=== PATIENT | female | born 1970 | race Caucasian/White ===

== ENCOUNTER → 2016-12-21 | Outpatient (CLI) | payer OTHER ==
[~2016-12-21] MED LIST: ASPI81TA28 PO; ATV/1 PO; EFF/375 PO; ENOX60IN SC; FLX10 PO; IMD/2 PO; MAGN400T6 PO; NSS; OMEP40CA PO; OMEP40CA41 PO; ONDA4TAB46 PO; POTA1POW; TRAM-10 PO; VENL-271 PO; ZVR/400 PO; [UNRECOGNIZED DRUG - CODE] PO; decadron; magnesium IV
--- NOTE | 2016-12-21 09:37 | DIAGNOSTIC IMAGING REPORT ---
GASTROGRAFIN COLONIC ENEMA CLINICAL HISTORY: ADENOCARCINOMA OF FALLOPIAN TUBEhistory of colonic resections with anastomosis. Evaluate for anastomotic leak. COMPARISON STUDY: None FLUOROSCOPY TIME: 1.1 minutes. 18 fluoroscopic spot images were acquired.. FINDINGS: Gastrografin was introduced per rectum and reached the cecum. There was reflux into terminal ileum. No annular mass lesions are visualized. There are no obstructive changes. There is no evidence for anastomotic leak. A sigmoid diverticulum is visualized. IMPRESSION: No evidence of stricture. No evidence of anastomotic leak. Electronically signed by: Tawanda Sanchez M.D. 12/21/2016 9:36 AM Dictated Date/Time: 12/21/2016 9:33 AM
== END | disposition home or self-care (01) ==
LOC: C.RAD 08:30
PROVIDERS: ATTEND Internal Medicine
DX: C57.00 Malignant neoplasm of unspecified fallopian tube (principal)

== ENCOUNTER 2017-04-08 10:25 | Inpatient (IN) | payer OTHER ==
[~2017-04-08] VITALS: Ht 175.3 cm; Wt 67.0 kg
[~2017-04-08 10:25] MED LIST changes: -ENOX60IN SC; -OMEP40CA41 PO; -VENL-271 PO; -[UNRECOGNIZED DRUG - CODE] PO
[2017-04-08] MEDS ORDERED: [UNRECOGNIZED DRUG - CODE] PO (11:12)
[2017-04-08] MEDS ORDERED: OMEP40CA41 PO (11:12)
[2017-04-08 11:28] LABS: BASO % 0.1 %; BASO ABS # 0.01 K/uL (0-0.2); COMPLETE YES; HEMATOCRIT 38.6 % (37-47); IG% 0.2 %; LYMPH % 29.5 %; LYMPH ABS # 3.16 K/uL (1.2-3.4); MEAN CELL VOLUME 94.4 fL (80-100); MEAN CORPUSCULAR HEMOGLOBIN 31.8 pg (25-34); MEAN CORPUSCULAR HGB CONC 33.7 g/dl (32-36); MEAN PLATELET VOLUME 8.9 fL (7.4-10.4); MONO % 9.8 %; NEUT % 59.4 %; PLATELET COUNT 382 K/uL (130-400); RED BLOOD COUNT 4.09 M/uL (4.2-5.4); WHITE BLOOD COUNT 10.72 K/uL (4.8-10.8)
[2017-04-08 11:35] LABS: BUN/CREATININE RATIO 16.3 (10-20); CALCIUM 10.1 mg/dl (8.5-10.1); CREATININE 0.93 mg/dl (0.60-1.20); POTASSIUM 3.6 mmol/L (3.5-5.1)
[2017-04-08 11:37] LABS: INR 0.9 (0.9-1.1); PROTHROMBIN TIME (PATIENT) 9.9 SECONDS (9.0-12.0)
--- NOTE | 2017-04-08 12:56 | DIAGNOSTIC IMAGING REPORT ---
RIGHT VENOUS DOPPLER UPR EXT UNI HISTORY: Pain. Edema. Right neck swelling, power port in place, ? DVT Right COMPARISON STUDY: None. FINDINGS: Evidence for extensive thrombus major within the right jugular and subclavian vein. Compressibility is incomplete. IMPRESSION: Extensive thrombus within the right jugular and subclavian veins. The above report was generated using voice recognition software. It may contain grammatical, syntax or spelling errors. Electronically signed by: Roosevelt Sin M.D. 04/08/2017 12:55 PM Dictated Date/Time: 04/08/2017 12:53 PM
[2017-04-08] MEDS ORDERED: ONDANSETRON 8 MG/54 ML D5W IV STA (13:13)
[2017-04-08] MEDS ORDERED: HYDROmorphone INJ 1 MG/ML SYR IV PRN ×2 (13:15→19:45)
[2017-04-08] MEDS ORDERED: HEPARIN 25000 UNIT/500 ML D5W ONE (13:26)
[2017-04-08] MEDS ORDERED: HEPARIN SOD 5000 UNIT/0.5 ML CARP ONE (13:26)
[2017-04-08] MEDS ORDERED: DOCUSATE SODIUM 100 MG CAP PO PRN (13:30)
[2017-04-08] MEDS ORDERED: SENNA 8.6 MG TAB PO PRN (13:30)
[2017-04-08] MEDS ORDERED: ONDANSETRON 4 MG TAB PO PRN (13:30)
[2017-04-08] MEDS ORDERED: ALUMINUM/MAGNESIUM/SIMETH (MAALOX MAX) 30 ML UDC PO PRN (13:45)
[2017-04-08] MEDS ORDERED: MAGNESIUM HYDROXIDE SUSP 30 ML UDC PO PRN (13:45)
[2017-04-08] MEDS ORDERED: MoRPHine SULFATE 2 MG/ML CARP IV PRN (13:45)
[2017-04-08] MEDS ORDERED: ACETAMINOPHEN 325 MG TAB PO PRN (13:45)
[2017-04-08 13:52] VITALS: O2SAT 98; Ht 175.3 cm; Wt 67.0 kg
[2017-04-08 14:19] VITALS: O2SAT 97
[2017-04-08 14:40] VITALS: BP 113/75; PULSE 87; TEMP 37.2
--- NOTE | 2017-04-08 15:03 | EMERGENCY ROOM VISIT NOTE ---
History Report prepared by Droa: Tiera Jones Under the Supervision of: Dr. Lamberto Cortes M.D. First contact with patient: 10:41 Chief Complaint: NECK PAIN Stated Complaint: NECK PAIN,SWOLLEN History of Present Illness The patient is a 46 year old female who presents to the Emergency Room with complaints of constant right-sided neck pain that started 4 days ago. The patient states that she woke up with the pain 4 days ago and thought that she just had a stiff neck. However, she noticed the right side of her neck was starting to get edematous yesterday so she felt that she should get it evaluated. She is also experiencing pain with swallowing and right shoulder stiffness. The patient is also experiencing generalized body aches, but she adds that she has been doing yard work recently. The patient states that she feels well otherwise. Pt denies LOC, headache, fevers, chills, diaphoresis, visual changes, neck erythema, chest pain, breathing difficulties, nausea, vomiting, abdominal pain, back pain, melena, hematochezia, urinary symptoms, lower extremity edema, numbness, weakness, lymphadenopathy, rash, or other complaints. The patient has been diagnosed with stage 4B. The patient states that she has not been on chemotherapy since November because her CA125 has been dropping without it. The patient adds that she had a positive mediastinum biopsy. The patient states that she was evaluated by her surgeon at [facility] 6 days ago and everything was good. Source of History: patient Onset: 4 days ago Position: neck (right side) Quality: other (right-sided neck pain) Timing: constant Note: right-sided neck edema, pain with swallowing, right shoulder stiffness, generalized body aches Review of Systems See HPI for pertinent positives and negatives. A total of ten systems were reviewed and were otherwise negative. Past Medical & Surgical Medical Problems: (1) DVT of upper extremity (deep vein thrombosis) (2) Ovarian cancer Surgical Problems: (1) H/O: hysterectomy (2) History of bowel resection (3) S/P appendectomy (4) S/P cholecystectomy (5) S/P splenectomy Family History No pertinent family history Social History Smoking Status: Former Smoker Alcohol Use: none Drug Use: none Marital Status: Housing Status: lives with family Occupation Status: employed Current/Historical Medications Scheduled Acyclovir (Acyclovir), 400 MG PO DAILY Aspirin (Aspirin Ec), 81 MG PO DAILY Lorazepam (Ativan), 1 MG PO HS Magnesium Oxide (Mag-Ox), 400 MG PO BID Omeprazole (Prilosec), 40 MG PO DAILY Potassium Chloride Pwd (Klor-Con Pwd), BID Rucaparib Camsylate (Rubraca), 600 MG PO BID Venlafaxine Hcl (Effexor), 37.5 MG PO DAILY Scheduled PRN Cyclobenzaprine HCl (Cyclobenzaprine HCl), 10 MG PO for Muscle Spasms Loperamide Hcl (Imodium), 4 MG PO QID PRN for Diarrhea Ondansetron Hcl (Zofran), 4 MG PO Q8 PRN for Nausea Tramadol (Ultram), 50 MG PO Q4H PRN for Pain Allergies Coded Allergies: No Known Allergies (Verified , 04/08/17) Physical Exam Vital Signs Date Time Temp Pulse Resp B/P (MAP) Pulse Ox O2 Delivery O2 Flow Rate FiO2 04/08/17 14:19 36.9 108 25 138/87 97 04/08/17 14:00 108 25 97 04/08/17 13:52 98 Room Air 04/08/17 13:31 138/87 04/08/17 13:30 105 04/08/17 13:11 130/87 04/08/17 12:01 123/80 04/08/17 12:00 86 23 98 04/08/17 11:56 92 04/08/17 11:35 98 Room Air 04/08/17 11:34 85 24 112/80 99 Room Air 04/08/17 11:33 112/80 04/08/17 10:27 36.9 106 20 115/76 97 Physical Exam GENERAL: Awake, alert, well-appearing, in no distress HENT: Normocephalic, atraumatic. Oropharynx unremarkable. EYES: Normal conjunctiva. Sclera non-icteric. NECK: Supple. Tender to palpation of the right neck. Minimal swelling. No erythema or warmth. Normal C SCM. No nuchal rigidity. FROM. No JVD. RESPIRATORY: Clear to auscultation. CARDIAC: Regular rate, normal rhythm. Extremities warm and well perfused. Pulses equal. ABDOMEN: Soft, non-distended. No tenderness to palpation. No rebound or guarding. No masses. RECTAL: Deferred. MUSCULOSKELETAL: Chest examination reveals no tenderness. Mediport in right chest. The back is symmetrical on inspection without obvious abnormality. There is no CVA tenderness to palpation. No joint edema. LOWER EXTREMITIES: Calves are equal size bilaterally and non-tender. No edema. No discoloration. NEURO: Normal sensorium. No sensory or motor deficits noted. SKIN: No rash or jaundice noted. Medical Decision & Procedures ER Provider Diagnostic Interpretation: US results as stated below per my review and radiologist interpretation: RIGHT VENOUS DOPPLER UPR EXT UNI FINDINGS: Evidence for extensive thrombus major within the right jugular and subclavian vein. Compressibility is incomplete. IMPRESSION: Extensive thrombus within the right jugular and subclavian veins. The above report was generated using voice recognition software. It may contain grammatical, syntax or spelling errors. Electronically signed by: Roosevelt Sin M.D. 04/08/2017 12:55 PM Dictated Date/Time: 04/08/2017 12:53 PM Laboratory Results 04/08/17 11:00 Red Blood Count 4.09, Mean Corpuscular Volume 94.4, Mean Corpuscular Hemoglobin 31.8, Mean Corpuscular Hemoglobin Concent 33.7, Mean Platelet Volume 8.9, Neutrophils (%) (Auto) 59.4, Lymphocytes (%) (Auto) 29.5, Monocytes (%) (Auto) 9.8, Eosinophils (%) (Auto) 1.0, Basophils (%) (Auto) 0.1, Neutrophils # (Auto) 6.37, Lymphocytes # (Auto) 3.16, Monocytes # (Auto) 1.05, Eosinophils # (Auto) 0.11, Basophils # (Auto) 0.01 04/08/17 11:00 Test 04/08/17 11:00 White Blood Count 10.72 K/uL (4.8-10.8) Red Blood Count 4.09 M/uL (4.2-5.4) Hemoglobin 13.0 g/dL (12.0-16.0) Hematocrit 38.6 % (37-47) Mean Corpuscular Volume 94.4 fL (80-100) Mean Corpuscular Hemoglobin 31.8 pg (25-34) Mean Corpuscular Hemoglobin Concent 33.7 g/dl (32-36) Platelet Count 382 K/uL (130-400) Mean Platelet Volume 8.9 fL (7.4-10.4) Neutrophils (%) (Auto) 59.4 % Lymphocytes (%) (Auto) 29.5 % Monocytes (%) (Auto) 9.8 % Eosinophils (%) (Auto) 1.0 % Basophils (%) (Auto) 0.1 % Neutrophils # (Auto) 6.37 K/uL (1.4-6.5) Lymphocytes # (Auto) 3.16 K/uL (1.2-3.4) Monocytes # (Auto) 1.05 K/uL (0.11-0.59) Eosinophils # (Auto) 0.11 K/uL (0-0.5) Basophils # (Auto) 0.01 K/uL (0-0.2) RDW Standard Deviation 55.1 fL (36.4-46.3) RDW Coefficient of Variation 15.9 % (11.5-14.5) Immature Granulocyte % (Auto) 0.2 % Immature Granulocyte # (Auto) 0.02 K/uL (0.00-0.02) Nucleated RBC Absolute Count (auto) 0.05 K/uL (0-0) Nucleated Red Blood Cells % 0.5 % Prothrombin Time 9.9 SECONDS (9.0-12.0) Prothromb Time International Ratio 0.9 (0.9-1.1) Activated Partial Thromboplast Time 24.9 SECONDS (21.0-31.0) Partial Thromboplastin Ratio 1.0 Anion Gap 7.0 mmol/L (3-11) Est Creatinine Clear Calc Drug Dose 78.4 ml/min Estimated GFR () 86.0 Estimated GFR (Non- 74.2 BUN/Creatinine Ratio 16.3 (10-20) Calcium Level 10.1 mg/dl (8.5-10.1) Total Bilirubin 0.4 mg/dl (0.2-1) Aspartate Amino Transf (AST/SGOT) 22 U/L (15-37) Alanine Aminotransferase (ALT/SGPT) 32 U/L (12-78) Alkaline Phosphatase 139 U/L (45-117) Total Protein 7.5 gm/dl (6.4-8.2) Albumin 3.8 gm/dl (3.4-5.0) Globulin 3.7 gm/dl (2.5-4.0) Albumin/Globulin Ratio 1.0 (0.9-2) Laboratory results reviewed by me Medications Administered Medications (Trade) Dose Ordered Sig/Constantin Route Start Time Stop Time Status Last Admin Dose Admin Hydromorphone HCl (Dilaudid Inj) 1 mg Q15M PRN IV 04/08/17 13:15 04/22/17 13:14 04/08/17 13:46 1 MG Ondansetron HCl (Zofran 8mg Iv) 8 mg NOW STAT IV 04/08/17 13:13 04/08/17 13:14 DC 04/08/17 13:13 8 MG Heparin Sodium (Porcine) (Heparin Sq 5000 Unit/0.5ml) 5,000 unit STK-MED ONCE .ROUTE 04/08/17 13:26 04/08/17 13:27 DC 04/08/17 13:26 4,000 UNIT Heparin Sodium/ Dextrose (Heparin 25,000 Unit/500ml D5W) 25,000 unit STK-MED ONCE .ROUTE 04/08/17 13:26 04/08/17 13:27 DC 04/08/17 13:26 25,000 UNIT ED Course 1108: The patient was evaluated in room C6. A complete history and physical exam was performed. 1310: Upon reexamination, the patient was resting comfortably. I discussed the test results and treatment plan with her. The patient will be evaluated for further management. 1311: Ordered Heparin Sodium/Dextrose 1 ea IV 1313: Ordered Zofran 8 mg IV 1315: Ordered Dilaudid Inj 1 mg IV 1316: [facility] the [facility] The patient will be evaluated for further treatment and disposition. 1317: Discussed the patient's case with Dr. Delgadillo - Vascular Surgery. He recommends anticoagulation and he said that the thrombus does not have to be removed today. Medical Decision Medication Reconciliation: I attest that I have personally reviewed the patient' s current medication list Blood pressure screening: Patient was found to have normal blood pressure on screening and does not require follow-up. Triage Nursing notes reviewed. The patient's presentation and history were concerning for neck swelling and pain. Etiologies such as DVT, infection,muscular, lymphadenopathy,as well as others were entertained. The patient was evaluated. She had a port in place. There is no signs of infection on the skin. Her history and the presence of the port were very concerning for possible DVT. The patient had blood work obtained which was unremarkable. Her ultrasound revealed an extensive jugular and subclavian DVT. The patient was informed. She will need anticoagulation. The patient was started on IV heparin. She will need admission to the hospital. I did discuss the case with the [facility]ist. I also discussed case with Dr. Delgadillo. He recommended anticoagulation. Catheter removal was not emergently necessary. The patient will be admitted and surgery will consult. Consults Time Called: 1309 Consulting Physician[facility] Returned Call: 1316 Discussed the patient's [facility] The patient will be evaluated for further treatment and disposition. Additional Consults: Time Called: 1316 Consulted Physician: Dr. Delgadillo - Vascular Surgery Returned Call: 1316 Additional Comments: Discussed the patient's case with Dr. Delgadillo - Vascular Surgery. He recommends anticoagulation and he said that the thrombus does not have to be removed today. Impression Primary Impression: Jugular vein thrombosis, right Additional Impression: Subclavian vein thrombosis, right Scribe Attestation The scribe's documentation has been prepared under my direction and personally reviewed by me in its entirety. I confirm that the note above accurately reflects all work, treatment, procedures, and medical decision making performed by me. Departure Information Dispostion Being Evaluated By Hospitalist Referrals Rossy Hilario M.D. (PCP) Patient Instructions My [facility] Problem Qualifiers
--- NOTE | 2017-04-08 15:08 | History and Physical ---
History & Physical Date & Time of Service: Apr 08, 2017 at 14:51 Chief Complaint: Dvt Of Ue,Metastatic Adenocarcinoma Of Ovary Primary Care Physician: Rossy Hilario M.D. 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 She has a port on the R side. Recently was seen by surgeon in [place] regarding the port and everything looked fine at that time. She noticed pain and swelling the past few days with worsening pain with bowel movements and with swallowing. Presented to the ER and had an ultrasound; showing two thrombus, in the R jugular and subclavian veins. She is resting comfortably currently; pain around 5/10. Follows with [facility] oncology as well as Dr. 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 At one point had an ileostomy, which was reversed in November. Past Medical/Surgical History Medical Problems: (1) Ovarian cancer Status: Chronic Surgical Problems: (1) H/O: hysterectomy Status: Resolved (2) History of bowel resection Status: Resolved (3) S/P appendectomy Status: Resolved (4) S/P cholecystectomy Status: Resolved (5) S/P splenectomy Status: Resolved Family History No pertinent family history Social History Smoking Status: Former Smoker Drug Use: none Marital Status: Occupational Status: employed Multi-Drug Resistant Organisms History of MDRO: No Allergies Coded Allergies: No Known Allergies (Verified , 04/08/17) Home Medications Scheduled Acyclovir (Acyclovir), 400 MG PO DAILY Aspirin (Aspirin Ec), 81 MG PO DAILY Lorazepam (Ativan), 1 MG PO HS Magnesium Oxide (Mag-Ox), 400 MG PO BID Omeprazole (Prilosec), 40 MG PO DAILY Potassium Chloride Pwd (Klor-Con Pwd), BID Rucaparib Camsylate (Rubraca), 600 MG PO BID Venlafaxine Hcl (Effexor), 37.5 MG PO DAILY Scheduled PRN Cyclobenzaprine HCl (Cyclobenzaprine HCl), 10 MG PO for Muscle Spasms Loperamide Hcl (Imodium), 4 MG PO QID PRN for Diarrhea Ondansetron Hcl (Zofran), 4 MG PO Q8 PRN for Nausea Tramadol (Ultram), 50 MG PO Q4H PRN for Pain Review of Systems Constitutional: No fever, No chills, No sweats, No weight loss, No weakness, No fatigue Eyes: No worsening of vision ENT: + problem reported (anterior R sided neck pain), No hearing loss Respiratory: No cough, No sputum, No wheezing, No shortness of breath, No dyspnea on exertion, No dyspnea at rest, No hemoptysis Cardiovascular: + chest pain (anterior chest/neck), No edema, No palpitations Abdomen: No pain, No nausea, No vomiting, No diarrhea, No constipation, No GI bleeding Musculoskeletal: No joint pain, No muscle pain Genitourinary - Female: No dysuria, No urinary frequency, No urinary urgency, No urinary incontinence, No urinary retention, No hematuria Neurologic: No weakness, No numbness/tingling, No vertigo, No balance problems Psychiatric: No depression symptoms, No anxiety, No insomnia Endocrine: No fatigue Hematologic / Lymphatic: No abnormal bleeding/bruising Integumentary: No rash Allergic / Immunologic: No environmental allergies, No seasonal allergies Physical Exam Vital Signs Date Time Temp Pulse Resp B/P (MAP) Pulse Ox O2 Delivery O2 Flow Rate FiO2 04/08/17 14:19 36.9 108 25 138/87 97 04/08/17 14:00 108 25 97 04/08/17 13:52 98 Room Air 04/08/17 13:31 138/87 04/08/17 13:30 105 04/08/17 13:11 130/87 04/08/17 12:01 123/80 04/08/17 12:00 86 23 98 04/08/17 11:56 92 04/08/17 11:35 98 Room Air 04/08/17 11:34 85 24 112/80 99 Room Air 04/08/17 11:33 112/80 04/08/17 10:27 36.9 106 20 115/76 97 General Appearance: no apparent distress Head: normocephalic, atraumatic Eyes: normal inspection ENT: hearing grossly normal Neck: + pertinent finding (fullness, painful anterior neck swelling) Respiratory/Chest: chest non-tender, lungs clear, normal breath sounds, no respiratory distress, no accessory muscle use Cardiovascular: regular rate, rhythm, no edema, no murmur Abdomen/GI: normal bowel sounds, non tender, soft Back: no CVA tenderness, no muscle spasm Extremities/Musculoskelatal: normal capillary refill, no pedal edema Neurologic/Psych: no motor/sensory deficits, alert, normal mood/affect Skin: normal color Lymphatic: no adenopathy Diagnostics Laboratory Results Results Past 24 Hours Test 04/08/17 11:00 Range/Units White Blood Count 10.72 4.8-10.8 K/uL Red Blood Count 4.09 4.2-5.4 M/uL Hemoglobin 13.0 12.0-16.0 g/dL Hematocrit 38.6 37-47 % Mean Corpuscular Volume 94.4 80-100 fL Mean Corpuscular Hemoglobin 31.8 25-34 pg Mean Corpuscular Hemoglobin Concent 33.7 32-36 g/dl Platelet Count 382 130-400 K/uL Mean Platelet Volume 8.9 7.4-10.4 fL Neutrophils (%) (Auto) 59.4 % Lymphocytes (%) (Auto) 29.5 % Monocytes (%) (Auto) 9.8 % Eosinophils (%) (Auto) 1.0 % Basophils (%) (Auto) 0.1 % Neutrophils # (Auto) 6.37 1.4-6.5 K/uL Lymphocytes # (Auto) 3.16 1.2-3.4 K/uL Monocytes # (Auto) 1.05 0.11-0.59 K/uL Eosinophils # (Auto) 0.11 0-0.5 K/uL Basophils # (Auto) 0.01 0-0.2 K/uL RDW Standard Deviation 55.1 36.4-46.3 fL RDW Coefficient of Variation 15.9 11.5-14.5 % Immature Granulocyte % (Auto) 0.2 % Immature Granulocyte # (Auto) 0.02 0.00-0.02 K/uL Nucleated RBC Absolute Count (auto) 0.05 0-0 K/uL Nucleated Red Blood Cells % 0.5 % Prothrombin Time 9.9 9.0-12.0 SECONDS Prothromb Time International Ratio 0.9 0.9-1.1 Activated Partial Thromboplast Time 24.9 21.0-31.0 SECONDS Partial Thromboplastin Ratio 1.0 Sodium Level 143 136-145 mmol/L Potassium Level 3.6 3.5-5.1 mmol/L Chloride Level 103 98-107 mmol/L Carbon Dioxide Level 33 21-32 mmol/L Anion Gap 7.0 3-11 mmol/L Blood Urea Nitrogen 15 7-18 mg/dl Creatinine 0.93 0.60-1.20 mg/dl Est Creatinine Clear Calc Drug Dose 78.4 ml/min Estimated GFR () 86.0 Estimated GFR (Non- 74.2 BUN/Creatinine Ratio 16.3 10-20 Random Glucose 79 70-99 mg/dl Calcium Level 10.1 8.5-10.1 mg/dl Total Bilirubin 0.4 0.2-1 mg/dl Aspartate Amino Transf (AST/SGOT) 22 15-37 U/L Alanine Aminotransferase (ALT/SGPT) 32 12-78 U/L Alkaline Phosphatase 139 45-117 U/L Total Protein 7.5 6.4-8.2 gm/dl Albumin 3.8 3.4-5.0 gm/dl Globulin 3.7 2.5-4.0 gm/dl Albumin/Globulin Ratio 1.0 0.9-2 Diagnostic Radiology RIGHT VENOUS DOPPLER UPR EXT UNI HISTORY: Pain. Edema. Right neck swelling, power port in place, ? DVT Right COMPARISON STUDY: None. FINDINGS: Evidence for extensive thrombus major within the right jugular and subclavian vein. Compressibility is incomplete. IMPRESSION: Extensive thrombus within the right jugular and subclavian veins. 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 Delgadillo will start IV heparin for now vascular surgery consulted for further input monitor in tele, monitor for bleeding as patient is on Rubraca therapy Metastatic Ovarian CA patient currently on Rubraca therapy follows with [facility] oncology DVT ppx IV heparin for DVT as above FULL CODE Advanced Directives Existing Living Will: No Existing Power of Casino Dealer: No VTE Prophylaxis VTE Risk Assessment Done? Y/N: Yes Risk Level: High Given or contraindicated: Other Anticoagulation
[2017-04-08] MEDS ORDERED: HEPARIN 25000 UNIT/ D5W 500 ML (PHARMACY PREPARED) IV PRN ×2 (15:30)
[2017-04-08] MEDS ORDERED: VENL-271 PO (15:30)
[2017-04-08] MEDS: TRAMADOL HCL 50 MG TAB PO PRN (16:55)
[2017-04-08 19:31] VITALS: BP 108/71; PULSE 83; TEMP 36.6; O2SAT 97
[2017-04-08] MEDS: KETOROLAC TROMETHAMINE 30 MG/ML VIAL IV PRN (19:56)
[2017-04-08] MEDS ORDERED: RUCAPARIB CAMSYLATE PO SCH (21:00)
[2017-04-08] MEDS ORDERED: RUBRACA PO SCH (21:00)
[2017-04-08] MEDS: MAGNESIUM OXIDE 400 MG TAB PO SCH (21:31)
[2017-04-08] MEDS: LORAZEPAM 1 MG TAB PO SCH (21:31)
[2017-04-08] MEDS: POTASSIUM CHLORIDE PWD 20 MEQ PACK PO SCH (21:32)
[2017-04-08 23:53] VITALS: BP 109/70; PULSE 74; TEMP 36.7; O2SAT 97
[2017-04-09 03:33] VITALS: BP 108/69; PULSE 87; TEMP 36.7; O2SAT 98
[2017-04-09] MEDS: KETOROLAC TROMETHAMINE 30 MG/ML VIAL IV PRN ×4 (03:33→22:43)
[2017-04-09 07:13] LABS: HEMATOCRIT 36.2 % (37-47); MEAN CELL VOLUME 94.5 fL (80-100); MEAN CORPUSCULAR HEMOGLOBIN 32.1 pg (25-34); PLATELET COUNT 325 K/uL (130-400); RED BLOOD COUNT 3.83 M/uL (4.2-5.4); WHITE BLOOD COUNT 9.23 K/uL (4.8-10.8)
[2017-04-09 07:34] LABS: PARTIAL THROMBOPLASTIN RATIO 1.9
[2017-04-09 07:44] LABS: BUN/CREATININE RATIO 17.9 (10-20); CALCIUM 9.5 mg/dl (8.5-10.1); CREATININE 0.92 mg/dl (0.60-1.20); POTASSIUM 4.1 mmol/L (3.5-5.1)
[2017-04-09] MEDS: VENLAFAXINE HCL XR 37.5 MG CAPXR PO SCH (07:58)
[2017-04-09] MEDS: ACYCLOVIR 400 MG TAB PO SCH (07:58)
[2017-04-09] MEDS: MAGNESIUM OXIDE 400 MG TAB PO SCH ×2 (07:58→21:09)
[2017-04-09] MEDS: PANTOprazole SOD 40 MG TAB PO SCH (07:58)
[2017-04-09] MEDS: ASPIRIN 81 MG ECTAB PO SCH (07:58)
[2017-04-09] MEDS: POTASSIUM CHLORIDE PWD 20 MEQ PACK PO SCH ×2 (07:58→21:09)
[2017-04-09] MEDS: RUBRACA PO SCH ×2 (07:59→21:12)
[2017-04-09 08:00] VITALS: BP 110/73; PULSE 85; O2SAT 98
[2017-04-09 11:04] VITALS: BP 115/75; PULSE 87; TEMP 36.7; O2SAT 97
--- NOTE | 2017-04-09 13:11 | Medical Consult ---
Consultation Date of Consultation: Apr 09, 2017. Attending Physician: Doreen Oliva M.D. Reason for Consultation: Extensive thrombus within the right jugular and subclavian veins in the setting of active treatment for Stage IV ovarian cancer History of Present Illness Mrs. Forrest is well known to the consult medical oncology service. She is a 46 -year-old female, a case of ovarian/fallopian tube carcinoma S/P optimal debulking surgery at [facility], she then completed 6 cycles of adjuvant paclitxel/carboplatin from 06/2016-10/2016. In December 2016, she followed up at [facility], and was started on Rucaparib (Rubraca). She had reversal of the ileostomy in December 2016. She followed up with [facility] last 04/02/2017, at which time a CA 125 was drawn and reportedly is 3, WNL. Prior to current admission, she had right sided neck/anterior chest pain for 4 days. She has a port on the right side. In The ER, she had RUE showing two thrombus, in the right jugular and subclavian veins. She was initially given morphine, but she states this made her feel drowsy and sick, so now she is taking Toradol with adequate relief of her pain. Vascular surgery has been consulted, note pending. She denies chest pain, cough or dyspnea. She has not had fever. She gets hot flashes s/p TH/BSO and is currently tapering of Effexor as this was not helpful in controlling these symptoms. She states her appetite is decreased on her PARP inhibitor, but she eats regularly. She denies nausea; she states she takes laxatives or Imodium PRN since she has s/p partial resection and GB removal at time of her debulking surgery. She denies bleeding from any sites. Past Medical/Surgical History Medical Problems: (1) Jugular vein thrombosis, right Status: Acute (2) Subclavian vein thrombosis, right Status: Acute Family History No pertinent family history Social History Smoking Status: Former Smoker Drug Use: none Marital Status: Housing Status: lives with family Occupation Status: employed Allergies Coded Allergies: No Known Allergies (Verified , 04/08/17) Current Inpatient Medications Current Inpatient Medications Medications (Trade) Dose Ordered Sig/Constantin Route Start Time Stop Time Status Last Admin Dose Admin Acyclovir (Zovirax Tab) 400 mg DAILY PO 04/09/17 09:00 05/09/17 08:59 04/09/17 07:58 400 MG Aspirin (Ecotrin Tab) 81 mg DAILY PO 04/09/17 09:00 05/09/17 08:59 04/09/17 07:58 81 MG Lorazepam (Ativan Tab) 1 mg HS PO 04/08/17 21:00 05/08/17 20:59 04/08/17 21:31 1 MG Magnesium Oxide (Mag-Ox Tab) 400 mg BID PO 04/08/17 21:00 05/08/17 20:59 04/09/17 07:58 400 MG Ondansetron HCl (Zofran Tab) 4 mg Q8 PRN PO 04/08/17 13:30 05/08/17 13:29 Potassium Chloride (Klor-Con Pwd) 20 meq BID PO 04/08/17 21:00 05/08/17 20:59 04/09/17 07:58 20 MEQ Tramadol HCl (Ultram Tab) 50 mg Q4H PRN PO 04/08/17 13:30 05/08/17 13:29 04/08/17 16:55 50 MG Venlafaxine HCl (effeXOR EXTENDED REL CAP) 37.5 mg DAILY PO 04/09/17 09:00 05/09/17 08:59 04/09/17 07:58 37.5 MG Pantoprazole Sodium (Protonix Tab) 40 mg DAILY PO 04/09/17 09:00 05/09/17 08:59 04/09/17 07:58 40 MG Docusate Sodium (coLACE CAP) 100 mg BID PRN PO 04/08/17 13:30 05/08/17 13:29 04/09/17 08:37 100 MG Senna (Senokot Tab) 8.6 mg QAM PRN PO 04/08/17 13:30 05/08/17 13:29 Acetaminophen (Tylenol Tab) 650 mg Q4H PRN PO 04/08/17 13:45 05/08/17 13:44 Al Hydrox/Mg Hydrox/Simethicone (Maalox Max Susp) 15 ml Q4H PRN PO 04/08/17 13:45 05/08/17 13:44 Magnesium Hydroxide (Milk Of Magnesia Susp) 30 ml Q12H PRN PO 04/08/17 13:45 05/08/17 13:44 Heparin Sodium (Porcine) 35733 unit/Dextrose 500 ml @ 16 mls/hr Q24H PRN IV 04/08/17 15:30 05/08/17 15:29 Ketorolac Tromethamine (Toradol Inj) 30 mg Q6H PRN IV 04/08/17 19:45 04/13/17 19:44 04/09/17 09:53 30 MG Hydromorphone HCl (Dilaudid Inj) 1 mg Q4 PRN IV 04/08/17 19:45 04/22/17 19:44 Non-Formulary Medication (Non-Formulary Patient'S Own Med) 2 ea BID PO 04/09/17 09:00 05/08/17 20:59 04/09/17 07:59 2 EA Review of Systems Constitutional: + sweats, No fever, No chills Respiratory: No cough, No sputum, No wheezing, No shortness of breath, No hemoptysis Cardiovascular: + edema (RUE- see HPI), No chest pain Abdomen: No pain, No nausea, No vomiting, No GI bleeding Musculoskeletal: No calf pain Genitourinary - Female: No hematuria Integumentary: No rash, No itch Physical Exam Date Time Temp Pulse Resp B/P (MAP) Pulse Ox O2 Delivery O2 Flow Rate FiO2 04/09/17 12:00 Room Air 04/09/17 11:04 36.7 87 20 115/75 (88) 97 Room Air 04/09/17 08:00 Room Air 04/09/17 08:00 85 18 110/73 (85) 98 Room Air 04/09/17 04:00 Room Air 04/09/17 03:33 36.7 87 16 108/69 (82) 98 Room Air 04/09/17 00:00 Room Air 04/08/17 23:53 36.7 74 16 109/70 (83) 97 Room Air 04/08/17 20:00 Room Air 04/08/17 19:31 36.6 83 16 108/71 (83) 97 Room Air 04/08/17 15:20 Room Air 04/08/17 14:40 37.2 87 16 113/75 (88) Room Air 04/08/17 14:19 36.9 108 25 138/87 97 7/16/17 14:00 108 25 97 04/08/17 13:52 98 Room Air 04/08/17 13:31 138/87 04/08/17 13:30 105 04/08/17 13:11 130/87 General Appearance: WD/WN, no apparent distress ENT: hearing grossly normal Respiratory/Chest: lungs clear, no respiratory distress, no accessory muscle use Cardiovascular: regular rate, rhythm Abdomen/GI: normal bowel sounds, non tender Extremities/Musculoskelatal: no calf tenderness, no pedal edema, + swelling ( of right supraclavicular fossa and anterior/lateral right neck) Neurologic/Psych: alert, oriented x 3 Skin: warm/dry, no rash Laboratory Results 04/08/17 11:00 Red Blood Count 4.09, Mean Corpuscular Volume 94.4, Mean Corpuscular Hemoglobin 31.8, Mean Corpuscular Hemoglobin Concent 33.7, Mean Platelet Volume 8.9, Neutrophils (%) (Auto) 59.4, Lymphocytes (%) (Auto) 29.5, Monocytes (%) (Auto) 9.8, Eosinophils (%) (Auto) 1.0, Basophils (%) (Auto) 0.1, Neutrophils # (Auto) 6.37, Lymphocytes # (Auto) 3.16, Monocytes # (Auto) 1.05, Eosinophils # (Auto) 0.11, Basophils # (Auto) 0.01 04/09/17 06:52 04/08/17 11:00 04/09/17 06:52 Test 04/08/17 11:00 04/08/17 20:00 04/09/17 06:52 White Blood Count 10.72 K/uL (4.8-10.8) Red Blood Count 4.09 M/uL (4.2-5.4) 3.83 M/uL (4.2-5.4) Hemoglobin 13.0 g/dL (12.0-16.0) Hematocrit 38.6 % (37-47) Mean Corpuscular Volume 94.4 fL (80-100) 94.5 fL (80-100) Mean Corpuscular Hemoglobin 31.8 pg (25-34) 32.1 pg (25-34) Mean Corpuscular Hemoglobin Concent 33.7 g/dl (32-36) 34.0 g/dl (32-36) Platelet Count 382 K/uL (130-400) Mean Platelet Volume 8.9 fL (7.4-10.4) 9.0 fL (7.4-10.4) Neutrophils (%) (Auto) 59.4 % Lymphocytes (%) (Auto) 29.5 % Monocytes (%) (Auto) 9.8 % Eosinophils (%) (Auto) 1.0 % Basophils (%) (Auto) 0.1 % Neutrophils # (Auto) 6.37 K/uL (1.4-6.5) Lymphocytes # (Auto) 3.16 K/uL (1.2-3.4) Monocytes # (Auto) 1.05 K/uL (0.11-0.59) Eosinophils # (Auto) 0.11 K/uL (0-0.5) Basophils # (Auto) 0.01 K/uL (0-0.2) RDW Standard Deviation 55.1 fL (36.4-46.3) 55.1 fL (36.4-46.3) RDW Coefficient of Variation 15.9 % (11.5-14.5) 15.9 % (11.5-14.5) Immature Granulocyte % (Auto) 0.2 % Immature Granulocyte # (Auto) 0.02 K/uL (0.00-0.02) Nucleated RBC Absolute Count (auto) 0.05 K/uL (0-0) 0.05 K/uL (0-0) Nucleated Red Blood Cells % 0.5 % 0.5 % Prothrombin Time 9.9 SECONDS (9.0-12.0) Prothromb Time International Ratio 0.9 (0.9-1.1) Activated Partial Thromboplast Time 24.9 SECONDS (21.0-31.0) 51.3 SECONDS (21.0-31.0) 49.5 SECONDS (21.0-31.0) Partial Thromboplastin Ratio 1.0 2.0 1.9 Anion Gap 7.0 mmol/L (3-11) 4.0 mmol/L (3-11) Est Creatinine Clear Calc Drug Dose 78.4 ml/min 80.6 ml/min Estimated GFR () 86.0 87.2 Estimated GFR (Non- 74.2 75.2 BUN/Creatinine Ratio 16.3 (10-20) 17.9 (10-20) Calcium Level 10.1 mg/dl (8.5-10.1) 9.5 mg/dl (8.5-10.1) Total Bilirubin 0.4 mg/dl (0.2-1) Aspartate Amino Transf (AST/SGOT) 22 U/L (15-37) Alanine Aminotransferase (ALT/SGPT) 32 U/L (12-78) Alkaline Phosphatase 139 U/L (45-117) Total Protein 7.5 gm/dl (6.4-8.2) Albumin 3.8 gm/dl (3.4-5.0) Globulin 3.7 gm/dl (2.5-4.0) Albumin/Globulin Ratio 1.0 (0.9-2) Right upper extremity venous Doppler from 04/08/2017: Evidence for extensive thrombus major within the right jugular and subclavian vein. Compressibility is incomplete. Assessment & Plan 1. Right jugular and subclavian vein thrombus, extensive, in the setting of a central VAD on the affected side * Patient started on heparin gtt on admission * Vascular consult is pending (conversation between primary team and vascular surgery yesterday, VS recommended to start anticoagulation and that clot removal , port removal was not necessary to occur on day of admission) * Depending on recommendations from VS, recommend to maintain patient on heparin gtt if a procedure is planned and to be stopped perioperatively per VS preference, then transition patient to therapeutic lovenox * Dr. Hilario plans to administer 3 months of anticoagulation with this patient * Check CBC daily while patient is hospitalized on anticoagulation and Rubraca can also cause bone marrow suppression 2. Stage IV ovarian cancer- s/p extensive debulking surgery, adjuvant chemotherapy with paclitaxel and carboplatin from 07/09-11/10, now currently on PARP inhibitor (Rubraca) * Having active DVT is not contraindication to continued administration of patient's Rubraca * Rubraca is not known to increase risk of VTE, based upon information available , but this is still a relatively newer drug * Most recent CA 125 was drawn on 04/02/17 at and per patient was 3, WNL Thanks for the consult. Dr. Hilario is attending medical oncologist on the case. The patient will continue to be monitored while hospitalized. I performed history and physical examination of the patient. I have discussed the patient's case, impression and plan with Amber Valdez PA-C. Her note reflects my findings and plan. In summary she is a known case of stage IV ovarian cancer, S/P extensive debulking surgery followed by chemotherapy treatment (paclitaxel and carboplatin ) between June,-October,, now she is on Rebruca (PARP inhibitor) as a maintenance treatment for BRCA mutation positive ovarian cancer, she has tolerated it quite well without significant side effects, now she is admitted for right jugular and subclavian vein thrombosis, she has port at the same site , started her on IV heparin, currently we are not using her port, agree about removing the port at this time. Once the port is out, I am planning for Lovenox at therapeutic dose as an outpatient treatment for about 3 months duration. She will follow up with the anticoagulation clinic. Will continue with Rebruca as we planned earlier. Dr. Chad Hilario Hem/Onc )
--- NOTE | 2017-04-09 14:06 | Progress Note ---
Internal Med Progress Note Date of Service: Apr 09, 2017. Provider Documentation: SUBJECTIVE: denies of any chest pain or SOB pain and swelling on rt side of neck persist no fever or chills scheduled for A port removal tomorrow by Dr Delgadillo OBJECTIVE: Vital Signs-as noted below Exam: General-no sign of distress Eyes-sclera non icteric Neck-swelling on rt neck area, no erythema noted, non tender Lungs-CTA , no wheeze or rales Heart-regular S1/S2 Abdomen-soft, non tender Extremities-no edema on lower ext Neuro-no focal deficit , AAO x3 Lab data as noted below. ASSESSMENT & PLAN: This is a 46 year old female with a PMH of metastatic ovarian and fallopian tube carcinoma s/p debulking and completed chemo presents with R jugular and subclavian vein DVT R jugular, subclavian DVT multiple DVTs noted at RUE U/S has A port on rt sided ; Hypercoagulable status due to underlying metastatic ovarian CA pt started on IV heparin for now vascular surgery consulted appreciate input form Dr Joyner scheduled for A port removal tomorrow monitor in tele,-high risk for embolic phenomenon -PE/acute CVA monitor for bleeding as patient is on Rubraca therapy pt will be transitioned to Therapeutic Lovenox tomorrow after procedure Metastatic Ovarian CA stage 4 ovarian and fallopian Ca with wide spread mets -peritoneum , mediastinum underwent extensive debulking surgery - s/p adjuvant chemotherapy with paclitaxel and carboplatin from 07/09-11/10, now currently on PARP inhibitor (Rubraca) follows with [facility] oncology Dr Molly Thompson and Dr Chad Hilario in [place] given hx of extensive activity director malignancy -pt is very hypercoagulable therapeutic Lovenox will be appropriate in this setting appreciate input form Heme onc recommend at least 3 months of Lovenox Sub q will continued to be followed at Heme onc office for further management out pt Anticoagulation clinic for continued monitoring of factor Xa level DVT ppx IV heparin for DVT as above needs to be transitioned to therapeutic Lovenox on discharge DISPOSITION Discharge home after Port removal will need to be on therapeutic Lovenox Vital Signs: Date Time Temp Pulse Resp B/P (MAP) Pulse Ox O2 Delivery O2 Flow Rate FiO2 04/09/17 12:00 Room Air 04/09/17 11:04 36.7 87 20 115/75 (88) 97 Room Air 04/09/17 08:00 Room Air 04/09/17 08:00 85 18 110/73 (85) 98 Room Air 04/09/17 04:00 Room Air 04/09/17 03:33 36.7 87 16 108/69 (82) 98 Room Air 04/09/17 00:00 Room Air 04/08/17 23:53 36.7 74 16 109/70 (83) 97 Room Air 04/08/17 20:00 Room Air 04/08/17 19:31 36.6 83 16 108/71 (83) 97 Room Air 04/08/17 15:20 Room Air Lab Results: Results Past 24 Hours Test 04/08/17 20:00 04/09/17 06:52 Range/Units Activated Partial Thromboplast Time 51.3 49.5 21.0-31.0 SECONDS Partial Thromboplastin Ratio 2.0 1.9 White Blood Count 9.23 4.8-10.8 K/uL Red Blood Count 3.83 4.2-5.4 M/uL Hemoglobin 12.3 12.0-16.0 g/dL Hematocrit 36.2 37-47 % Mean Corpuscular Volume 94.5 80-100 fL Mean Corpuscular Hemoglobin 32.1 25-34 pg Mean Corpuscular Hemoglobin Concent 34.0 32-36 g/dl RDW Standard Deviation 55.1 36.4-46.3 fL RDW Coefficient of Variation 15.9 11.5-14.5 % Platelet Count 325 130-400 K/uL Mean Platelet Volume 9.0 7.4-10.4 fL Nucleated RBC Absolute Count (auto) 0.05 0-0 K/uL Nucleated Red Blood Cells % 0.5 % Sodium Level 138 136-145 mmol/L Potassium Level 4.1 3.5-5.1 mmol/L Chloride Level 103 98-107 mmol/L Carbon Dioxide Level 31 21-32 mmol/L Anion Gap 4.0 3-11 mmol/L Blood Urea Nitrogen 17 7-18 mg/dl Creatinine 0.92 0.60-1.20 mg/dl Est Creatinine Clear Calc Drug Dose 80.6 ml/min Estimated GFR () 87.2 Estimated GFR (Non- 75.2 BUN/Creatinine Ratio 17.9 10-20 Random Glucose 89 70-99 mg/dl Calcium Level 9.5 8.5-10.1 mg/dl
--- NOTE | 2017-04-09 14:24 | Surgery Consultation ---
Consultation Date of Service Apr 09, 2017. (Amber Sultana, ASH) Chief Complaint R IJ/subclavian v DVT (Amber Sultana, ASH) History of Present Illness The patient is a 46 year old female with ovarian ca and infusaport present, seen in consultation today for R IJ and subclavian v DVT. Pt states she noticed pain with swallowing on R side neck, also R neck swelling about 3 days prior to arrival. States her sx have improved since admission and starting heparin. Not on chronic anticaogulation. No prior hx of DVT. States unsure whether she will need her infusaport, but not using it presently. Denies MITCHELL, fever, chills, chest pain, SOB, abd pain, N/V, rest pain, claudication, other complaints. (Amber Sultana, ASH) Vitals Vital Signs Past 12 Hours Date Time Temp Pulse Resp B/P (MAP) Pulse Ox O2 Delivery O2 Flow Rate FiO2 04/09/17 12:00 Room Air 04/09/17 11:04 36.7 87 20 115/75 (88) 97 Room Air 04/09/17 08:00 Room Air 04/09/17 08:00 85 18 110/73 (85) 98 Room Air 04/09/17 04:00 Room Air 04/09/17 03:33 36.7 87 16 108/69 (82) 98 Room Air (Amber Sultana, ASH) Allergies Coded Allergies: No Known Allergies (Verified , 04/08/17) Home Medications Scheduled Acyclovir (Acyclovir), 400 MG PO DAILY Aspirin (Aspirin Ec), 81 MG PO DAILY Lorazepam (Ativan), 1 MG PO HS Magnesium Oxide (Mag-Ox), 400 MG PO BID Omeprazole (Prilosec), 40 MG PO DAILY Potassium Chloride Pwd (Klor-Con Pwd), BID Rucaparib Camsylate (Rubraca), 600 MG PO BID Venlafaxine Hcl (Venlafaxine Hcl Er), 37.5 MG PO DAILY Scheduled PRN Cyclobenzaprine HCl (Cyclobenzaprine HCl), 10 MG PO for Muscle Spasms Loperamide Hcl (Imodium), 4 MG PO QID PRN for Diarrhea Ondansetron Hcl (Zofran), 4 MG PO Q8 PRN for Nausea Tramadol (Ultram), 50 MG PO Q4H PRN for Pain Problem List Medical Problems: (1) DVT of upper extremity (deep vein thrombosis) (2) Ovarian cancer Surgical Problems: (1) H/O: hysterectomy (2) History of bowel resection (3) S/P appendectomy (4) S/P cholecystectomy (5) S/P splenectomy (Amber Sultana PA-C) Surgical / Medical History Hx Cardiac Surgery: No Hx Abdominal Surgery: Yes (PELVIC EXTENERTION, APPENDECTOMY) Hx Cancer Surgery: Yes (STAGE 4 OVARIAN, S/P PELVIX EXTENERATION) Hx Thoracic Surgery: No Hx Orthopedic: No Hx Urinary Tract Surgery: No HX Other Surgery: Yes Past Medical/Surgical History: Cancer (Amber Sultana PA-C) Family History No pertinent family history (Amber Sultana PA-C) No pertinent family history (Ruiz Delgadillo M.D.) Social History Smoking Status: Former Smoker Hx Tobacco Use In Past Year?: Yes Hx Alcohol Use - Type & Amnt: Yes (Drinks alcohol occasionally. 0-7 beers weekly.) Hx Substance Use -Type & Amnt: No (Amber Sultana, ASH) Review of Systems Constitutional: No chills, No fever, No malaise Skin: No change in color Eyes: No visual changes ENMT: + problem reported (R side neck pain/stiffness) Respiratory: No cough, No STEPHENS, No hemoptysis, No short of breath Cardiovascular: No chest pain, No palpitations, No syncope, No edema, No intermittent claudication Gastrointestinal: No abdominal pain, No nausea, No vomiting Genitourinary - Female: No dysuria, No hematuria Neurologic: No dizziness, No headache, No lethargy, No numbness, No tingling ( Amber Sultana, ASH) Physical Exam Constitutional: General Apperance: heathly-appearing, well-nourished, well-developed Level of Distress: NAD Ambulation: ambulating normally Psychiatric: Mental Status: active & alert, normal mood, normal affect Orientation: oriented except where noted, to time, to place, to person Memory: recent memory normal, remote memory normal Head: normocephalic, atraumatic Eyes: EOM: EOMI ENMT: normal ENT inspection, hearing grossly normal Neck: supple, trachea midline, tender (R side only, minimal edema noted) Lungs: Respiratory effort: no dyspnea Auscultation: breath sounds normal, no wheezing, no rales/crackles, no rhonchi Cardiovascular: Apical Impulse: not displaced Heart Auscultation: RRR, no murmurs, no rubs, no gallops Peripheral Pulses: Pulses: full and equal, in all extremities except if noted Bruits: none appreciated Carotid Pulse: normal on the left, normal on the right Brachial Pulses: normal on the left, normal on the right Radial Pulse: normal on the left, normal on the right Femoral Pulse: normal on the left, normal on the right Posterior Tibialis Pulse: normal on the left, normal on the right Dorsalis Pedis Pulse: normal on the left, normal on the right Abdomen: Bowel Sounds: normal Inspection & Palpation: soft, non-distended, no tenderness, guarding & rebound Musculoskeletal: normal strength (5/5 throughout), normal tone Extremities: Upper Right: no cyanosis, no edema, no varicosities Upper Left: no cyanosis, no edema, no varicosities Lower Right: no cyanosis, no edema, no varicosities Lower Left: no cyanosis, no edema, no varicosities Neurologic: Cranial Nerves: grossly intact Sensation: grossly intact (Amber Sultana, PA-C) Assessment and Plan ASSESSMENT and PLAN: R IJ thrombus Presence of infusaport ovarian ca Pt discussed with Dr Delgadillo, who saw pt as well. Recommends pt to undergo removal of infusaport tomorrow in OR, as it is likely thrombogenic. Can reinsert PRN if required for future chemotherapy. Procedure, risks, benefits, and alternatives discussed with pt, she expresses understanding and agreement. (Amber Sultana, PA-C) Patient was seen, examined, and chart reviewed. Agree with exam and treatment plan of the Vascular PA. Will plan on removing port tomorrow (Ruiz Delgadillo M.D.)
[2017-04-09] MEDS: TRAMADOL HCL 50 MG TAB PO PRN ×2 (14:49→21:11)
--- NOTE | 2017-04-09 15:33 | Discharge Instructions ---
Discharge Instructions Date of Service Apr 09, 2017. Admission Reason for Admission: Dvt Of Ue,Metastatic Adenocarcinoma Of Ovary Discharge Discharge Diagnosis / Problem: (1) DVT of upper extremity (deep vein thrombosis) (2) Metastatic adenocarcinoma of ovary (3) Subclavian vein thrombosis, right (4) Jugular vein thrombosis, right (5) Ovarian cancer VTE Date & Time Date of VTE Diagnosis: Apr 10, 2017 Time of VTE Diagnosis: 11:17 Discharge Goals Goal(s): Decrease discomfort, Diagnostic testing, Therapeutic intervention Activity Recommendations Activity Limitations: resume your previous activity . Instructions / Follow-Up Instructions / Follow-Up HOSPITAL FOLLOW UP : 1:00 PM Chiquita Sexton MD General Internal Medicine [facility] FOLLOW UP WITH HEME ONC DR OLIVE CORONA PER SCHEDULE Medication Instructions: Your condition is typically treated with an anticoagulant. Anticoagulants will thin your blood to help prevent new clots. * You should take her medication exactly as directed. * Never skip a dose. * Never take a double dose. If you miss a dose, take it as soon as you remember. Call your Primary Care doctor if you experience any of the following: * Swelling or Pain in your leg * Sudden, continuous pain deep in a muscle * Pain that worsens when you are active or when you stand still for a long time * Chest Pain * Sudden Shortness of Breath * Rapid or pounding heart beat * Fainting * Dizziness * Cough with blood or bloody sputum * Sweating more than normal * Bruises * Heavy or uncontrolled bleeding * Blood in your urine, stool or vomit * Black or tarry stools Caring for Your Self at Home: * Avoid sitting, standing or lying down for long periods without moving your legs and feet * When traveling by car, stop to get out and move around at least once every 3 hours * On long airplane, train or bus rides, get up and move around when possible * If you can't get up, wiggle your toes and tighten your calves to keep your blood moving Follow Up: It is important for you to keep your follow up appointments with your medical provider. HOSPITAL FOLLOW UP : 1:00 PM Chiquita Sexton MD General Internal Medicine [facility] PLEASE FOLLOW UP WITH COAGULATION CLINIC FOR LAB MONITORING ( ANTI -XA LEVEL ) TO ADJUST DOSE OF LOVENOX Current Hospital Diet Patient's current hospital diet: Regular Diet Discharge Diet Recommended Diet: Regular Diet Pending Studies Studies pending at discharge: no Medical Emergencies . Who to Call and When: Medical Emergencies: If at any time you feel your situation is an emergency, please call 911 immediately. . Non-Emergent Contact Non-Emergency issues call your: Primary Care Provider . . "Provider Documentation" section prepared by Doreen Oliva. . VTE Core Measure Inpt VTE Proph given/why not?: Enoxaparin (Lovenox)SQ, Other Anticoagulation
--- NOTE | 2017-04-09 15:35 | DIAGNOSTIC IMAGING REPORT ---
ULTRASOUND VENOUS DOPPLER LWR EXT BILA CLINICAL HISTORY: Leg swelling COMPARISON STUDY: No previous studies for comparison. FINDINGS: Real-time and color flow Doppler imaging were performed. Flow was seen within the femoral, popliteal and calf veins with no intraluminal thrombus demonstrated. The saphenous vein is patent. IMPRESSION: No evidence of lower extremity DVT. Electronically signed by: Tawanda Sanchez M.D. 04/09/2017 3:34 PM Dictated Date/Time: 04/09/2017 3:33 PM
[2017-04-09 15:40] VITALS: BP 120/75; PULSE 84; TEMP 36.8; O2SAT 97
--- NOTE | 2017-04-09 15:52 | Progress Note ---
Progress Note Date of Service Apr 09, 2017. Progress Note ATTENDING NOTE : D/W Heme onc and Anticoagulation Pharmacy Dr Raymundo pt will be started on Lovenox 1 mg /kg BID dose starting form tomorrow ( 60mg SC BID ) Anti Xa factor needs to be checked 4 hrs after Ist dose pt will be discharged with 60 mg SC BID dose for 2 weeks later can be transitioned to 1.5 mg /Kg daily dose( 100 mg SC daily ) -easier pt compliance /similar effective anti Xa factor needs to be checked 1 week after being 100mg sc dose for further adjustment pt will be followed at Coagulation clinic for further management
[2017-04-09] MEDS ORDERED: ENOX60IN SC (15:58)
[2017-04-09 19:41] VITALS: BP 127/74; PULSE 88; TEMP 36.8; O2SAT 96
[2017-04-09] MEDS: LORAZEPAM 1 MG TAB PO SCH (21:09)
[2017-04-09 23:00] VITALS: BP 103/65; PULSE 74; TEMP 36.6; O2SAT 96
[2017-04-10 03:20] VITALS: BP 115/66; PULSE 81; TEMP 36.6; O2SAT 98
[2017-04-10] MEDS ORDERED: CEFAZOLIN SOD 1000MG/55 ML D5W IV ONE ×2 (06:00→15:37)
[2017-04-10 06:27] LABS: HEMATOCRIT 33.3 % (37-47); MEAN CELL VOLUME 93.5 fL (80-100); MEAN CORPUSCULAR HEMOGLOBIN 31.5 pg (25-34); MEAN CORPUSCULAR HGB CONC 33.6 g/dl (32-36); MEAN PLATELET VOLUME 9.1 fL (7.4-10.4); PLATELET COUNT 340 K/uL (130-400); RED BLOOD COUNT 3.56 M/uL (4.2-5.4); WHITE BLOOD COUNT 9.13 K/uL (4.8-10.8)
[2017-04-10 07:01] LABS: BUN/CREATININE RATIO 26.2 (10-20); CALCIUM 9.3 mg/dl (8.5-10.1); CREATININE 0.81 mg/dl (0.60-1.20); POTASSIUM 4.4 mmol/L (3.5-5.1)
[2017-04-10 07:28] LABS: PARTIAL THROMBOPLASTIN RATIO 2.1
[2017-04-10 07:51] VITALS: BP 102/64; PULSE 76; TEMP 37; O2SAT 98
[2017-04-10] MEDS: ASPIRIN 81 MG ECTAB PO SCH (08:05)
[2017-04-10] MEDS: ACYCLOVIR 400 MG TAB PO SCH (08:05)
[2017-04-10] MEDS: MAGNESIUM OXIDE 400 MG TAB PO SCH (08:05)
[2017-04-10] MEDS: VENLAFAXINE HCL XR 37.5 MG CAPXR PO SCH (08:05)
[2017-04-10] MEDS: RUBRACA PO SCH (08:05)
[2017-04-10] MEDS: PANTOprazole SOD 40 MG TAB PO SCH (08:05)
[2017-04-10] MEDS: POTASSIUM CHLORIDE PWD 20 MEQ PACK PO SCH (08:05)
--- NOTE | 2017-04-10 09:16 | Progress Note ---
Subjective Date of Service: Apr 10, 2017. Subjective Pt evaluation today including: conversation w/ patient, physical exam, lab review, review of studies, review of inpatient medication list Saw/examined the patient in room 218 She is doing well Pain at the R anterior neck/chest wall is controlled with medications No chest pain or shortness of breath good PO intake Currently NPO for planned surgical removal of port today - she is aware of plan and eager to get this done Problem List Medical Problems: (1) Jugular vein thrombosis, right Status: Acute (2) Subclavian vein thrombosis, right Status: Acute Review of Systems Constitutional: No fever, No chills ENT: + problem reported (neck pain, controlled with medications) Respiratory: No cough, No sputum, No shortness of breath Cardiac: No chest pain, No edema, No palpitations Abdomen: No pain, No nausea, No vomiting, No diarrhea, No GI bleeding Musculoskeletal: No joint pain Female : No dysuria, No urinary frequency Psychiatric: No depression symptoms Heme: No abnormal bleeding/bruising Medications Current Inpatient Medications Medications (Trade) Dose Ordered Sig/Constantin Route Start Time Stop Time Status Last Admin Dose Admin Acyclovir (Zovirax Tab) 400 mg DAILY PO 04/09/17 09:00 05/09/17 08:59 04/10/17 08:05 400 MG Aspirin (Ecotrin Tab) 81 mg DAILY PO 04/09/17 09:00 05/09/17 08:59 04/10/17 08:05 81 MG Lorazepam (Ativan Tab) 1 mg HS PO 04/08/17 21:00 05/08/17 20:59 04/09/17 21:09 1 MG Magnesium Oxide (Mag-Ox Tab) 400 mg BID PO 04/08/17 21:00 05/08/17 20:59 04/10/17 08:05 400 MG Ondansetron HCl (Zofran Tab) 4 mg Q8 PRN PO 04/08/17 13:30 05/08/17 13:29 Potassium Chloride (Klor-Con Pwd) 20 meq BID PO 04/08/17 21:00 05/08/17 20:59 04/10/17 08:05 20 MEQ Tramadol HCl (Ultram Tab) 50 mg Q4H PRN PO 04/08/17 13:30 05/08/17 13:29 04/09/17 21:11 50 MG Venlafaxine HCl (effeXOR EXTENDED REL CAP) 37.5 mg DAILY PO 04/09/17 09:00 05/09/17 08:59 04/10/17 08:05 37.5 MG Pantoprazole Sodium (Protonix Tab) 40 mg DAILY PO 04/09/17 09:00 05/09/17 08:59 04/10/17 08:05 40 MG Docusate Sodium (coLACE CAP) 100 mg BID PRN PO 04/08/17 13:30 05/08/17 13:29 04/09/17 08:37 100 MG Senna (Senokot Tab) 8.6 mg QAM PRN PO 04/08/17 13:30 05/08/17 13:29 Acetaminophen (Tylenol Tab) 650 mg Q4H PRN PO 04/08/17 13:45 05/08/17 13:44 Al Hydrox/Mg Hydrox/Simethicone (Maalox Max Susp) 15 ml Q4H PRN PO 04/08/17 13:45 05/08/17 13:44 Magnesium Hydroxide (Milk Of Magnesia Susp) 30 ml Q12H PRN PO 04/08/17 13:45 05/08/17 13:44 Heparin Sodium (Porcine) 91109 unit/Dextrose 500 ml @ 16 mls/hr Q24H PRN IV 04/08/17 15:30 05/08/17 15:29 04/09/17 19:37 16 MLS/HR Ketorolac Tromethamine (Toradol Inj) 30 mg Q6H PRN IV 04/08/17 19:45 04/13/17 19:44 04/09/17 22:43 30 MG Hydromorphone HCl (Dilaudid Inj) 1 mg Q4 PRN IV 04/08/17 19:45 04/22/17 19:44 Non-Formulary Medication (Non-Formulary Patient'S Own Med) 2 ea BID PO 04/09/17 09:00 05/08/17 20:59 04/10/17 08:05 2 EA Objective Vital Signs Date Time Temp Pulse Resp B/P (MAP) Pulse Ox O2 Delivery O2 Flow Rate FiO2 04/10/17 08:00 Room Air 04/10/17 07:51 37.0 76 18 102/64 (77) 98 Room Air 04/10/17 04:00 Room Air 04/10/17 03:20 36.6 81 18 115/66 (82) 98 Room Air 04/10/17 00:01 Room Air 04/09/17 23:00 36.6 74 18 103/65 (78) 96 Room Air 04/09/17 20:00 Room Air 04/09/17 19:41 36.8 88 20 127/74 (91) 96 04/09/17 16:00 Room Air 04/09/17 15:40 36.8 84 20 120/75 (90) 97 Room Air 04/09/17 12:00 Room Air 04/09/17 11:04 36.7 87 20 115/75 (88) 97 Room Air Physical Exam General Appearance: no apparent distress ENT: hearing grossly normal Neck: + pertinent finding (swelling at R anterior neck/chest wall improved; port is palpable) Respiratory/Chest: lungs clear, normal breath sounds, no respiratory distress, no accessory muscle use Cardiovascular: regular rate, rhythm, no edema, no murmur Abdomen: normal bowel sounds, non tender, soft Extremities: normal range of motion, non-tender, normal inspection, no pedal edema, no calf tenderness Neurologic/Psychiatric: no motor/sensory deficits, alert, normal mood/affect Skin: normal color Lymphatic: no adenopathy Laboratory Results Last 24 Hours Test 04/10/17 06:01 04/10/17 07:01 White Blood Count 9.13 K/uL Red Blood Count 3.56 M/uL Hemoglobin 11.2 g/dL Hematocrit 33.3 % Mean Corpuscular Volume 93.5 fL Mean Corpuscular Hemoglobin 31.5 pg Mean Corpuscular Hemoglobin Concent 33.6 g/dl RDW Standard Deviation 54.9 fL RDW Coefficient of Variation 15.8 % Platelet Count 340 K/uL Mean Platelet Volume 9.1 fL Nucleated RBC Absolute Count (auto) 0.05 K/uL Nucleated Red Blood Cells % 0.5 % Sodium Level 141 mmol/L Potassium Level 4.4 mmol/L Chloride Level 107 mmol/L Carbon Dioxide Level 30 mmol/L Anion Gap 4.0 mmol/L Blood Urea Nitrogen 21 mg/dl Creatinine 0.81 mg/dl Est Creatinine Clear Calc Drug Dose 91.7 ml/min Estimated GFR () 101.7 Estimated GFR (Non- 87.7 BUN/Creatinine Ratio 26.2 Random Glucose 89 mg/dl Calcium Level 9.3 mg/dl Activated Partial Thromboplast Time 54.8 SECONDS Partial Thromboplastin Ratio 2.1 Assessment and Plan This is a 46 year old female with a PMH of metastatic ovarian and fallopian tube carcinoma s/p debulking and completed chemo presents with R jugular and subclavian vein DVT R jugular, subclavian DVT multiple DVTs noted at RUE U/S port related; malignancy spoke with Dr. Delgadillo continue IV heparin for now plan for OR today - removal of port by vascular surgery will stop IV heparin after that and start Lovenox plan for Lovenox 1mg/kg x 2 weeks will check anti Xa factor four hours after first dose for baseline then will switch to 1.5mg/kg daily of Lovenox and check weekly anti Xa Metastatic Ovarian CA stage 4 ovarian CA with mets to Fallopian tube, peritoneum patient currently on Rubraca therapy follows with [facility] oncology as well as Dr. Chad Hilario of oncology DVT ppx IV heparin for DVT as above FULL CODE
[2017-04-10 11:39] VITALS: BP 124/80; PULSE 92; TEMP 36.9; O2SAT 96
[2017-04-10] MEDS: KETOROLAC TROMETHAMINE 30 MG/ML VIAL IV PRN (11:46)
--- NOTE | 2017-04-10 14:34 | Hematology/Oncology Prog Note ---
Hematology/Onc Progress Note Date of Service Apr 10, 2017. Medications Current Inpatient Medications Medications (Trade) Dose Ordered Sig/Constantin Route Start Time Stop Time Status Last Admin Dose Admin Acyclovir (Zovirax Tab) 400 mg DAILY PO 04/09/17 09:00 05/09/17 08:59 04/10/17 08:05 400 MG Aspirin (Ecotrin Tab) 81 mg DAILY PO 04/09/17 09:00 05/09/17 08:59 04/10/17 08:05 81 MG Lorazepam (Ativan Tab) 1 mg HS PO 04/08/17 21:00 05/08/17 20:59 04/09/17 21:09 1 MG Magnesium Oxide (Mag-Ox Tab) 400 mg BID PO 04/08/17 21:00 05/08/17 20:59 04/10/17 08:05 400 MG Ondansetron HCl (Zofran Tab) 4 mg Q8 PRN PO 04/08/17 13:30 05/08/17 13:29 Potassium Chloride (Klor-Con Pwd) 20 meq BID PO 04/08/17 21:00 05/08/17 20:59 04/10/17 08:05 20 MEQ Tramadol HCl (Ultram Tab) 50 mg Q4H PRN PO 04/08/17 13:30 05/08/17 13:29 04/09/17 21:11 50 MG Venlafaxine HCl (effeXOR EXTENDED REL CAP) 37.5 mg DAILY PO 04/09/17 09:00 05/09/17 08:59 04/10/17 08:05 37.5 MG Pantoprazole Sodium (Protonix Tab) 40 mg DAILY PO 04/09/17 09:00 05/09/17 08:59 04/10/17 08:05 40 MG Docusate Sodium (coLACE CAP) 100 mg BID PRN PO 04/08/17 13:30 05/08/17 13:29 04/09/17 08:37 100 MG Senna (Senokot Tab) 8.6 mg QAM PRN PO 04/08/17 13:30 05/08/17 13:29 Acetaminophen (Tylenol Tab) 650 mg Q4H PRN PO 04/08/17 13:45 05/08/17 13:44 Al Hydrox/Mg Hydrox/Simethicone (Maalox Max Susp) 15 ml Q4H PRN PO 04/08/17 13:45 05/08/17 13:44 Magnesium Hydroxide (Milk Of Magnesia Susp) 30 ml Q12H PRN PO 04/08/17 13:45 05/08/17 13:44 Heparin Sodium (Porcine) 00218 unit/Dextrose 500 ml @ 16 mls/hr Q24H PRN IV 04/08/17 15:30 05/08/17 15:29 04/09/17 19:37 16 MLS/HR Ketorolac Tromethamine (Toradol Inj) 30 mg Q6H PRN IV 04/08/17 19:45 04/13/17 19:44 04/10/17 11:46 30 MG Hydromorphone HCl (Dilaudid Inj) 1 mg Q4 PRN IV 04/08/17 19:45 04/22/17 19:44 Non-Formulary Medication (Non-Formulary Patient'S Own Med) 2 ea BID PO 04/09/17 09:00 05/08/17 20:59 04/10/17 08:05 2 EA Subjective Patient was rounded on a bedside. She does not have any new complaints. Her right neck induration has decreased since starting on anticoagulation and taking Toradol regularly. She is awaiting her procedure to have port removed. Vital Signs Vital Signs Past 12 Hours Date Time Temp Pulse Resp B/P (MAP) Pulse Ox O2 Delivery O2 Flow Rate FiO2 04/10/17 12:00 Room Air 04/10/17 11:39 36.9 92 18 124/80 (95) 96 04/10/17 08:00 Room Air 04/10/17 07:51 37.0 76 18 102/64 (77) 98 Room Air 04/10/17 04:00 Room Air 04/10/17 03:20 36.6 81 18 115/66 (82) 98 Room Air Physical Exam Constitutional: General Apperance: heathly-appearing Level of Distress: NAD Neck: supple, pertinent finding (decreased fullness of right side of neck) Lungs: Auscuitation: breath sounds normal, no wheezing, no rhonchi Cardiovascular: Heart Auscultation: RRR Extremities: no edema Laboratory 04/10/17 06:01 04/10/17 06:01 Test 04/10/17 06:01 04/10/17 07:01 Red Blood Count 3.56 M/uL (4.2-5.4) Mean Corpuscular Volume 93.5 fL (80-100) Mean Corpuscular Hemoglobin 31.5 pg (25-34) Mean Corpuscular Hemoglobin Concent 33.6 g/dl (32-36) RDW Standard Deviation 54.9 fL (36.4-46.3) RDW Coefficient of Variation 15.8 % (11.5-14.5) Mean Platelet Volume 9.1 fL (7.4-10.4) Nucleated RBC Absolute Count (auto) 0.05 K/uL (0-0) Nucleated Red Blood Cells % 0.5 % Anion Gap 4.0 mmol/L (3-11) Est Creatinine Clear Calc Drug Dose 91.7 ml/min Estimated GFR () 101.7 Estimated GFR (Non- 87.7 BUN/Creatinine Ratio 26.2 (10-20) Calcium Level 9.3 mg/dl (8.5-10.1) Activated Partial Thromboplast Time 54.8 SECONDS (21.0-31.0) Partial Thromboplastin Ratio 2.1 Radiology 04/09/17 Venous Doppler bilateral: No evidence of lower extremity DVT. Assessment & Plan 1. 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 Hilario plans to administer 3 months of anticoagulation with this patient * Spoke with MTM today at [facility], recommends to check antiXa level after 3-4 doses of Lovenox, so as long as patient is stable from a vascular standpoint after procedure, she can be started on therapeutic dosing of Lovenox and will have a f/u with MTM to check anti Xa level (this was relayed to Dr. Fitzgerald and he is agreeable) 2. Stage IV ovarian cancer- s/p extensive debulking surgery, adjuvant chemotherapy with paclitaxel and carboplatin from 07/09-11/10, now currently on PARP inhibitor (Rubraca) * Having active DVT is not contraindication to continued administration of patient's Rubraca * Rubraca is not known to increase risk of VTE, based upon information available , but this is still a relatively newer drug * Most recent CA 125 was drawn on 04/02/17 at and per patient was 3, WNL ===== I performed history and physical examination of the patient. I have discussed the patient's case, impression and plan with Amber Valdez PA-C. Her note reflects my findings and plan. I saw her at bedside, her port was removed without any complications, receiving IV heparin, she will receive 1st dose of Lovenox and then she will go home. Will continue with the Lovenox at the therapeutic does as an outpatient and follow up with the anticoagulation clinic. Dr. Chad Hilario Hem/Onc
--- NOTE | 2017-04-10 15:28 | Procedure Note ---
Pre-Mod Sedation Assessment General Date of Moderate Sedation: Apr 10, 2017. Vital Signs: Vital Signs Past 12 Hours Date Time Temp Pulse Resp B/P (MAP) Pulse Ox O2 Delivery O2 Flow Rate FiO2 04/10/17 12:00 Room Air 04/10/17 11:39 36.9 92 18 124/80 (95) 96 04/10/17 08:00 Room Air 04/10/17 07:51 37.0 76 18 102/64 (77) 98 Room Air 04/10/17 04:00 Room Air Pre-Sedation Airway Assessment Oral Cavity: WNL Smoking Status: Former Smoker Mallampati Classification: Class I ASA Classification: Class II Notes The planned sedation has been discussed with the patient and consent obtained. I have identified the patient, determined the appropriateness of sedation and have assessed the patient immediately prior to the procedure. All medicine(s) and interventions are by my order.
--- NOTE | 2017-04-10 15:28 | Progress Note ---
Progress Note Date of Service Apr 10, 2017. Progress Note Patient for port removal today I have discussed the risks options and benefits of the procedure with the patient. The patient understands the risks options and benefits and agrees to the procedure. I have examined the patient, reviewed the History & Physical and in the interval since the performance of the History & Physical I have noted the following changes of clinical significance: No changes noted
[2017-04-10] MEDS ORDERED: LIDOCAINE HCL 1% 20 ML VIAL ONE ×3 (15:34→15:36)
[2017-04-10] MEDS ORDERED: MIDAZOLAM HCL 1 MG/ML 2ML VIAL ONE (15:35)
[2017-04-10] MEDS ORDERED: FENTANYL CITRATE INJ 50 MCG/1 ML 2 ML VIAL ONE (15:35)
[2017-04-10 15:40] VITALS: BP 124/80; PULSE 92; TEMP 36.9; O2SAT 96
[2017-04-10] MEDS ORDERED: FENTANYL CITRATE INJ 50 MCG/1 ML 2 ML VIAL IV ONE (15:56)
[2017-04-10] MEDS ORDERED: MIDAZOLAM HCL 1 MG/ML 2ML VIAL IV ONE (15:56)
[2017-04-10] MEDS ORDERED: LIDOCAINE HCL 1% 20 ML VIAL INJ ONE (16:00)
--- NOTE | 2017-04-10 16:17 | [facility] Post Operative Brief Note ---
Immediate Operative Summary Operative Date Apr 10, 2017. Pre-Operative Diagnosis R IJ thrombus Presence of infusaport ovarian ca Post-Operative Diagnosis Same Procedure(s) Performed Removal of Infusaport Conscious sedation (1639 - 3708) Surgeon Elie Laser Set Up Operator Surgeon(s) None Estimated Blood Loss 3 Findings port and catheter removed Specimens a; Infusaport Anesthesia Local with sedation Complication(s) None Disposition
--- NOTE | 2017-04-10 16:23 | Procedure Note ---
Post-Moderate Sedation Plan General Date of Moderate Sedation Apr 10, 2017. Vital Signs: Vital Signs Past 12 Hours Date Time Temp Pulse Resp B/P (MAP) Pulse Ox O2 Delivery O2 Flow Rate FiO2 04/10/17 12:00 Room Air 04/10/17 11:39 36.9 92 18 124/80 (95) 96 04/10/17 08:00 Room Air 04/10/17 07:51 37.0 76 18 102/64 (77) 98 Room Air Review - Discharge Plan Post Moderate Sedation Plan: On clinical assessment, the patient appears to have tolerated the conscious sedation without complications. Patient is recovering as anticipated. Patient will continue to be monitored by nursing and may be discharged when conscious sedation discharge criteria are met.
--- NOTE | 2017-04-10 16:23 | [facility] Operative Report ---
Operative Report Operative Date Apr 10, 2017. Pre-Operative Diagnosis R IJ thrombus Presence of infusaport ovarian ca Post-Operative Diagnosis Same Procedure(s) Performed Removal of Infusaport Conscious sedation (6719 - 7502) Surgeon Elie Heel Dipper Surgeon(s) None Estimated Blood Loss 3 Findings catheter and port removed Specimens a; Infusaport Anesthesia Local with sedation Complication(s) None Disposition Indications This is a 46-year-old white female who has a port in place. She is developed a thrombosis of her right internal jugular vein. She no longer needs a port at this point in time we therefore recommended that we remove the port and catheter. She understood the risks options and benefits and agreed to go ahead with the procedure. Description of Procedure The patient was taken to the operating room and placed in supine position. After the right side of the neck and chest wall were prepped and draped in a sterile manner local anesthetic was administered. A small transverse incision was made in the line of her old incision just above the port. It was carried down until the catheter was seen attaching to the port. The port was then freed up from the surrounding tissue. The catheter was pulled out of the internal jugular vein and slid out easily. The port was then removed with the surrounding fibrin capsule in its entirety. Bleeding was controlled using electrocautery. Adequate hemostasis was noted. We placed a small amount of Susana in the wound. The wound was then closed using a running 3-0 Vicryl suture for the subcutaneous layer. The skin edges were approximated using a 4- 0 Vicryl subcuticular stitch. Dermabond was used for dressing. The patient left the operating room in good condition and tolerated the procedure well. I attest to the content of the Intraoperative Record and any orders documented therein. Any exceptions are noted below.
--- NOTE | 2017-04-10 17:17 | Progress Note ---
Progress Note Date of Service Apr 10, 2017. Progress Note Patient had removal of port done by Dr. Delgadillo. Spoke with Ambre Valdez, oncology. After speaking with MTM team and oncology - it is decided that we will check anti factor Xa after third or fourth dose. Therefore, patient can be discharged home today with Lovenox 60mg BID; will check the blood test in 1-2 days Two weeks of Lovenox 1mg/kg, then switch to 1.5mg/kg daily Outpatient follow-up with oncology PCP follow-up on 04/13 at 1:00PM with Dr. Sexton
--- NOTE | 2017-04-10 17:36 | Discharge Summary ---
Discharge Summary Date of Service Apr 10, 2017. Discharge Summary Admission Date: Apr 08, 2017 at 13:37 Discharge Date: Apr 10, 2017 Discharge Disposition: Home Principal Diagnosis: R jugular and subclavian thrombus Medication Reconciliation New Medications: Enoxaparin (Lovenox) 60 Mg/0.6 Ml Inj 60 MG SC BID for 14 Days, #14 EA Continued Medications: Acyclovir (Acyclovir) 400 Mg Tab 400 MG PO DAILY Aspirin (Aspirin Ec) 81 Mg Tab 81 MG PO DAILY Cyclobenzaprine HCl (Cyclobenzaprine HCl) 10 Mg Tab 10 MG PO PRN for Muscle Spasms Loperamide Hcl (Imodium) 2 Mg Cap 4 MG PO QID PRN for Diarrhea, CAP Lorazepam (Ativan) 1 Mg Tab 1 MG PO HS, TAB Magnesium Oxide (Mag-Ox) 400 Mg Tab 400 MG PO BID, TAB Omeprazole (Prilosec) 40 Mg Cap 40 MG PO DAILY, CAP Ondansetron Hcl (Zofran) 4 Mg Tab 4 MG PO Q8 PRN for Nausea, TAB Potassium Chloride Pwd (Klor-Con Pwd) 20 Meq Pack BID Rucaparib Camsylate (Rubraca) 300 Mg Tab 600 MG PO BID Tramadol (Ultram) 50 Mg Tab 50 MG PO Q4H PRN for Pain, TAB Venlafaxine Hcl (Venlafaxine Hcl Er) 37.5 Mg Tab 37.5 MG PO DAILY Admission Information HPI (per Admitting provider): This is a 46 year old female with a PMH of metastatic ovarian and fallopian tube carcinoma s/p debulking and completed chemo presents with R sided neck/ anterior chest pain. She has a port on the R side. Recently was seen by surgeon in [place] regarding the port and everything looked fine at that time. She noticed pain and swelling the past few days with worsening pain with bowel movements and with swallowing. Presented to the ER and had an ultrasound; showing two thrombus, in the R jugular and subclavian veins. She is resting comfortably currently; pain around 5/10. Follows with [facility] oncology as well as Dr. 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 At one point had an ileostomy, which was reversed in November. Physical Exam (per Admitting): General Appearance: no apparent distress Head: normocephalic, atraumatic Eyes: normal inspection ENT: hearing grossly normal Neck: + pertinent finding (fullness, painful anterior neck swelling) Respiratory/Chest: chest non-tender, lungs clear, normal breath sounds, no respiratory distress, no accessory muscle use Cardiovascular: regular rate, rhythm, no edema, no murmur Abdomen/GI: normal bowel sounds, non tender, soft Back: no CVA tenderness, no muscle spasm Extremities/Musculoskelatal: normal capillary refill, no pedal edema Neurologic/Psych: no motor/sensory deficits, alert, normal mood/affect Skin: normal color Lymphatic: no adenopathy Hospital Course This is a 46 year old female with a PMH of metastatic ovarian and fallopian tube carcinoma s/p debulking and completed chemo presents with R jugular and subclavian vein DVT R jugular, subclavian DVT multiple DVTs noted at RUE U/S port related; malignancy spoke with Dr. Delgadillo continue IV heparin for now plan for OR today - removal of port by vascular surgery will stop IV heparin after that and start Lovenox plan for Lovenox 1mg/kg x 2 weeks will check anti Xa factor after third or fourth dose* then will switch to 1.5mg/kg daily of Lovenox and check weekly anti Xa Metastatic Ovarian CA stage 4 ovarian CA with mets to Fallopian tube, peritoneum patient currently on Rubraca therapy follows with [facility] oncology as well as Dr. Chad Hilario of oncology DVT ppx IV heparin for DVT as above FULL CODE Total time spent on discharge = 40 minutes This includes examination of the patient, discharge planning, medication reconciliation, and communication with other providers. Discharge Instructions Please follow-up with Dr. Sexton on April 13 at 1:00PM Please follow-up with oncology as scheduled You must follow-up with the coagulation clinic for lab monitoring (anti Xa level ) to adjust dose of Lovenox
[2017-04-10] MEDS ORDERED: ENOXAPARIN 80 MG/0.8 ML SYR SQ SCH (18:00)
[2017-04-10 18:14] VITALS: BP 113/71; PULSE 71; TEMP 36.9; O2SAT 97
--- NOTE | 2017-04-12 14:32 | EDITING REQUIRED CODING QUERY ---
CODING QUERY To promote full compliance with coding requirements relating to patient care, provider participation is requested in all cases of last ironer uncertainty. Please assist us with the question(s) below: Coding Question(s): Patient with extensive ovarian mets to the peritoneum, presents with jugular and subclavian vein thrombosis in the setting of a VAD. Please document, if known or suspected, the etiology of the venous thrombosis, if known or suspected. Thank you! Osmany Alatorre SENIOR [employer]AVA PROGRAMMER ANALYST [facility] Physician's Response(s): Suspected cause of thrombosis was the port, hence the removal of the port during admission. Principal Diagnosis: "_that condition established after study, to be chiefly responsible for occasioning the admission of the patient to the hospital for care." Co-Existing Principal Diagnosis: "_when two or more diagnoses equally meet the criteria for principal diagnosis as determined by the circumstances of admission, diagnostic work up, and/or therapy provided, and the Alphabetic Index, Tabular List, or another coding guideline does not provide sequencing direction, any one of the diagnoses may be sequenced first." "When the physician has documented what appears to be a current diagnosis in the body of the record, but has not included the diagnosis in the final diagnostic statement, the physician should be asked whether the diagnosis should be added." (Source Coding Clinic 2 QTR90. p3-4)
== END 2017-04-10 18:29 | disposition home or self-care (01) | DRG 315 ==
LOC: C.EDB 10:26 → C.2T 13:37 → EDBEDREQ 13:52 → ENRESERV 14:05
PROVIDERS: ADMIT Family Medicine; ATTEND Family Medicine
PROC: 02PY33Z Removal of Infusion Device from Great Vessel, Percutaneous Approach (ICD-10-PCS; principal; 2017-04-10 15:30)
PROC: 0JPT0XZ Removal of Tunneled Vascular Access Device from Trunk Subcutaneous Tissue and Fascia, Open Approach (ICD-10-PCS; principal; 2017-04-10 15:30)
DX: T82.868A Thrombosis due to vascular prosthetic devices, implants and grafts, initial encounter (principal); I82.890 Acute embolism and thrombosis of other specified veins; C78.6 Secondary malignant neoplasm of retroperitoneum and peritoneum; C79.51 Secondary malignant neoplasm of bone; I82.B11 Acute embolism and thrombosis of right subclavian vein; Z86.718 Personal history of other venous thrombosis and embolism; Z90.710 Acquired absence of both cervix and uterus; Z87.891 Personal history of nicotine dependence; Z85.43 Personal history of malignant neoplasm of ovary; Y92.009 Unspecified place in unspecified non-institutional (private) residence as the place of occurrence of the external cause; Y71.2 Prosthetic and other implants, materials and accessory cardiovascular devices associated with adverse incidents

== ENCOUNTER → 2017-04-25 | Outpatient (CLI) | payer OTHER ==
[~2017-04-25] MED LIST changes: -EFF/375 PO; +ENOX60IN SC; -NSS; -OMEP40CA PO; +OMEP40CA41 PO; +VENL-271 PO; +[UNRECOGNIZED DRUG - CODE] PO; -decadron; -magnesium IV
--- NOTE | 2017-04-25 17:10 | DIAGNOSTIC IMAGING REPORT ---
VENOUS DOPPLER UPR EXT UNIL CLINICAL HISTORY: 46 years-old Female presenting with PAIN, EDEMA AND SWELLING, L SIDE OF NECK. TECHNIQUE: Real-time grayscale and color and spectral Doppler ultrasound imaging of the veins of the left upper extremity was performed. Compression and augmentation were also utilized. COMPARISON: Comparison made to Doppler ultrasound of the right upper extremity. FINDINGS: Left: Subclavian vein: Patent. Internal jugular vein: Patent. Axillary vein: Patent. Brachial vein: Patent. Cephalic vein: Patent. Basilic vein: Patent. Radial vein: Patent. Ulnar vein: Patent. Other: None. IMPRESSION: No evidence of deep venous thrombosis. Electronically signed by: Cal Shane M.D. 04/25/2017 5:09 PM Dictated Date/Time: 04/25/2017 5:07 PM
== END | disposition home or self-care (01) ==
LOC: C.ULTR 16:25
PROVIDERS: ATTEND Nurse Practitioner
DX: M54.2 Cervicalgia (principal); I82.890 Acute embolism and thrombosis of other specified veins

== ENCOUNTER 2022-02-16 09:50 | Inpatient (IN) ==
[2022-02-16] MEDS ORDERED: SODIUM CHLORIDE 0.9% 1000ML 1,000 ML IV ONE (10:04)
--- NOTE | 2022-02-16 10:30 | XRay Report ---
XR chest 1V portable CLINICAL HISTORY: Chest Pain. COMPARISON STUDY: 02/04/2019 TECHNIQUE: 1 view of the chest FINDINGS: Single frontal view of the chest demonstrates the cardiomediastinal silhouette to be within normal li mits. There is again a Port-A-Cath in place. Compared to previous study, there has been interval development of a moderately large right pleural e ffusion with right lung atelectasis/collapse present. Follow-up CT of the chest is recommended for fu rther evaluation. Is also evidence for small left pleural effusion. Left hemithorax otherwise clear. There is no eviden ce for vascular congestion. There is no acute osseous pathology. IMPRESSION: 1. Interval development of moderately large right pleural effusion with right lung atelectasis/collap se CT of the chest with contrast is recommended to evaluate for possible underlying neoplastic proces s. 2. Minimal left pleural effusion is also present. ACT 112: Negative or not required by law. Electronically signed by: Tarun Gunderson M.D. 02/16/2022 10:29 AM
[2022-02-16 10:54] LABS: Basophils # (auto) 0.03 K/uL (0-0.2); Basophils % (auto) 0.3 %; Eosinophils # (auto) 0.44 K/uL (0-0.5); Eosinophils % (auto) 4.1 %; Hematocrit (blood only) 38.2 % (37-47); Hemoglobin 12.6 g/dL (12.0-16.0); Immature Granulocytes # (auto) 0.07 K/uL (0.00-0.02); Immature Granulocytes % (auto) 0.7 %; Lymphocytes # (auto) 1.43 K/uL (1.2-3.4); Lymphocytes % (auto) 13.3 %; Mean Corpuscular Hemoglobin 31.7 pg (25-34); Monocytes # (auto) 1.89 K/uL (0.11-0.59); Monocytes % (auto) 17.6 %; Nucleated RBC # (auto) 0.15 K/uL (0-0); Nucleated RBC % (auto) 1.4 %; Platelet Count 660 K/uL (130-400); RDW Coefficient of Variation 17.5 % (11.5-14.5); RDW Standard Deviation 59.4 fL (36.4-46.3); Red Blood Count 3.98 M/uL (4.2-5.4); White Blood Count 10.76 K/uL (4.8-10.8)
[2022-02-16 11:09] LABS: Albumin Level 3.1 gm/dl (3.4-5.0); BUN Creatinine Ratio 34.4 (10-20); Bilirubin,Total 0.5 mg/dl (0.2-1.0); Calcium 9.2 mg/dl (8.5-10.1); Creatinine Clr Calc Pharmacy 111.3 ml/min; Est GFR (African American) 122.5 ml/min; Est GFR (Non-African American) 105.7 ml/min; Potassium 3.6 mmol/L (3.5-5.1); Total Protein 6.1 gm/dl (6.0-8.3)
[2022-02-16 11:14] LABS: Troponin I High Sensitivity 7.4 pg/ml (0-14)
[2022-02-16] MEDS ORDERED: OPTIRAY 320 125ml IV ONE (11:29)
[2022-02-16 11:31] LABS: Adenovirus PCR Not Detected (NotDetected); Bordetella parapertussis PCR Not Detected (NotDetected); Bordetella pertussis PCR Not Detected (NotDetected); Chlamydia pneumoniae PCR Not Detected (NotDetected); Coronavirus 229E PCR Not Detected (NotDetected); Coronavirus CoV-2 (COVID19)PCR Not Detected (NotDetected); Coronavirus HKU1 PCR Not Detected (NotDetected); Coronavirus NL63 PCR Not Detected (NotDetected); Coronavirus OC43PCR Not Detected (NotDetected); Human Metapneumovirus PCR Not Detected (NotDetected); Influenza A PCR Not Detected (NotDetected); Influenza B PCR Not Detected (NotDetected); Mycoplasma pneumoniae PCR Not Detected (NotDetected); Parainfluenza Virus 1 PCR Not Detected (NotDetected); Parainfluenza Virus 2 PCR Not Detected (NotDetected); Parainfluenza Virus 3 PCR Not Detected (NotDetected); Parainfluenza Virus 4 PCR Not Detected (NotDetected); Respiratory Syncytial VirusPCR Not Detected (NotDetected); Rhinovirus/Enterovirus PCR Not Detected (NotDetected)
--- NOTE | 2022-02-16 11:48 | CT Scan Report ---
CT angio chest PE protocol CLINICAL HISTORY: L CP, SOB, hypoxia, CA, Right pleur-ex, effusion. COMPARISON STUDY: Portable chest from 02/16/2022 and previous CTA chest from 02/05/2019 CT DOSE: 336.54 mGy.cm TECHNIQUE: CT Angio of the chest was performed.followed by image post processing with coronal, and s agittal MIP reformats. Contrast Volume: Optiray 320, 115 ml FINDINGS: Vasculature: There is homogeneous perfusion of the pulmonary vasculature bilaterally. No intraluminal filling defects or evidence for pulmonary embolus is seen. Airway: The airway is clear. No endobronchial lesion is identified. Lungs and pleural: As seen radiographically, there is a large right pleural effusion comprises many c omponents. Loculated right upper lobe effusion is present along with a separate loculated left lower lobe effusion. Free pleural fluid is also seen. A Pleurx catheter is present on the left within the l oculated left lower lobe pleural fluid. There is no evidence for pneumothorax. There is mild aeration of normal appearing right upper and lower lung with atelectasis/collapse of the remaining lung. Not appreciated radiographically is a moderate to large left pleural effusion as well with compressiv e atelectasis of the left lower lobe. This was most likely subdiaphragmatic in location on the chest radiograph. Additionally, there are multiple spiculated pulmonary nodules present within the left asad g characteristic of metastatic disease. These are seen on images 206 within the left upper lobe and 1 52 within the lingular segment of the left upper lobe. Mediastinum: Right paratracheal and precarinal adenopathy is present with the largest lymph node miguelina uring approximately 1.7 x 1.8 cm. The heart size is within normal limits. Left-sided port catheter is again noted. The thoracic aorta is within normal limits. There is no evidence for pericardial effusi on. Axilla: there is also evidence for asymmetric right axillary adenopathy when compared to the left. Th e largest lymph node measures approximately 1.4 x 1.0 cm. Upper abdomen:The adrenal glands are normal bilaterally. Osseous structures: There is no acute osseous pathology. Impression: 1. No CTA evidence for pulmonary embolus. 2. CT demonstrates large right pleural effusion with loculated right upper lobe and left lower lobe f luid collections along with free pleural fluid. Pleurx catheter is present within the loculated left lower lobe fluid collection. 3. There is associated collapse of majority of the right lung with only mild residual aerated lung pr esent. 4. Not appreciated radiographically is a moderately large left pleural effusion as well with compress odell atelectasis involving the left lower lobe. 5. 2 spiculated pulmonary nodules are present in the left representing metastatic disease. 6. Right paratracheal and precarinal adenopathy along with asymmetric right axillary adenopathy. ACT 112: Negative or not required by law. Electronically signed by: Tarun Gunderson M.D. 02/16/2022 11:46 AM
--- NOTE | 2022-02-16 12:44 | History & Physical Report ---
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 She has right-sided Pleurx catheter in place. She follows with [facility] interventional and pulmonology where she had pleurex placed 9 months ago. She also has history of upper extremity DVT currently anticoagulated on Eliquis. Currently she is receiving treatment with doxorubicin. Her last chemotherapy was on 01/31/2022. Hypoxia SOB Malignant Pleural Effusion Metastatic ovarian Ca to liver, lung and pleura admit to PCU consult pulm to eval for loculated effusions b/l ? if further intervention required pt with rocket pleurx in place, will attempt to drain and repeat imaging Pt was able to remove 600ml of pleural fluid, transudative wean oxygen as able wound care of lesions to pleurx site Follows with Dr. Chad Hilario and Dr. Molly Thompson of [facility] Also follows with [facility] pulm and interventional radiology DVT Upper ext continue eliquis Dispo: PCU PCP: Javid Hilario FULL CODE Pt was seen and examined in collaboration with Dr. Escamilla History of Present Illness Chief Complaint: SOB x 2 weeks. 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 She has right-sided Pleurx catheter in place. She follows with [facility] interventional and pulmonology where she had pleurex placed 9 months ago. She also has history of upper extremity DVT currently anticoagulated on Eliquis. Currently she is receiving treatment with doxorubicin. Her last chemotherapy was on 01/31/2022. She did receive IV fluids with heme-onc on 02/08/2022. SHe gets a PET scan every 3 months. Last PET scan did show fluid developing in L side of lung. She follows with Dr. Molly Thompson at [facility]. She comes in today due to unable to breath for 2 weeks. 4 days ago she took 350ml off the catheter. She has noticed it has been taking longer to get fluid off. Typically every 3-4 days she takes fluid off. She notices SOB with exertion and at rest. Feels like she is having a hard time taking a deep breath, "I'm trying to suck my lungs inside out." She further complains of L sided rib pain under L breast. Occasionally she gets a shooting pain on and off a lot of different places in abdomen or down neck. Also complains of bone pain. Mostly in her long bones. She manages pain 1g APAP AM and PM. Howeer it is no longer working. She denies recent f/c/s, dizziness, lightheaded, chest pain, cough, vomiting, hematemesis, melena, hematochezia, dysuria, increased freq/urg, hematuria and abdominal pain. She does complain of nausea, loss of appetite, 10lb weight loss since starting the Doxil 4 cycles ago, & freq loose stool. Allergies Allergy/AdvReac Type Severity Reaction Status Date / Time No Known Allergies Allergy Verified 02/16/22 12:43 Home Medications Medication Instructions Recorded Confirmed Type acyclovir 400 mg tablet 400 mg PO QAM 02/04/19 02/16/22 History esomeprazole magnesium 40 mg 40 mg PO DAILY 02/04/19 02/16/22 History capsule,delayed release (Nexium) venlafaxine 37.5 mg 37.5 mg PO BID 02/04/19 02/16/22 History capsule,extended release 24 hr (Effexor XR) acetaminophen 500 mg capsule 1,000 mg PO BID 07/26/21 02/16/22 History magnesium 200 mg tablet 400 mg PO DAILY 07/26/21 02/16/22 History apixaban 2.5 mg tablet (Eliquis) 2.5 mg PO BID 02/16/22 02/16/22 History cholecalciferol (vitamin D3) 25 0 mcg PO DAILY 02/16/22 02/16/22 History mcg (1,000 unit) tablet (Vitamin D3) cyanocobalamin (vitamin B-12) 25 0 mcg PO DAILY 02/16/22 02/16/22 History mcg tablet lorazepam 1 mg tablet 1 mg PO HS 02/16/22 02/16/22 History Past Med/Surg History Medical History (Updated 02/16/22 @ 13:50 by Yuliya Jones PA-C) BRCA1 gene mutation positive DVT of upper extremity (deep vein thrombosis) History of blood clots History of chemotherapy HLD (hyperlipidemia) Liver metastases Ovarian cancer Pleural metastasis Surgical History H/O: hysterectomy History of bowel resection S/P appendectomy S/P cholecystectomy S/P splenectomy Family History (Updated 02/16/22 @ 12:42 by Yuliya Jones PA-C) Mother Lung cancer Father Diabetes Hypertension Sister Ovarian cancer Social History (Updated 02/16/22 @ 12:42 by Yuliya Jones PA-C) Smoking Status: Former smoker packs per day: 0.5; Years Smoked: 20; Hx Alcohol Use: No Hx Substance Use: No Preferred Language: Slovak Feels Safe at Home: Yes Review of Systems Review of Systems: All systems reviewed & are unremarkable except as noted in HPI & below Physical Exam Physical Exam: Constitutional: WD/WN, vitals as above, NAD, sitting up in bed, pleasant, conversing easily Head: Normocephalic, Atraumatic Eyes: PERRL, conjunctivae normal, anicteric sclerae ENMT: external ear and nose normal, oropharynx normal Neck: trachea midline, no thyromegaly normal visual inspection Respiratory: normal respiratory effort, Diminished to absent breath sounds b/l R > L, + R pleurx in place, surrounding skin with excoriation from dressing, no evidence of infection, no wheeze, rales, rhonchi. Normal insp/exp effort, no accessory muscle use on 2L of O2 via NC Cardiovascular: RRR, no murmur, no edema Vessels: no JVD or carotid bruit Chest: normal inspection of chest Abdomen: normal bowel sounds, soft, nontender, no hepatosplenomegaly Musculoskeletal: no cyanosis or clubbing, AROM x 4 Skin: no rashes, warm and dry normal turgor Neurologic: PERRL, EOMI, accommodation nl, no face palsy, no dysarthria CN's II-XI intact bilaterally and moves all extremities Psychiatric: A+Ox3, euthymic affect : deferred Results & Data Results & Data ([place]) Vital Signs (Past 12 Hours) Vital Signs Temp Pulse Pulse Resp BP Pulse Ox 02/16/22 12:00 93 H 21 02/16/22 11:35 96 02/16/22 11:34 106/72 02/16/22 11:16 93 H 21 94 02/16/22 11:00 93 H 22 94 02/16/22 10:46 100 H 17 94 02/16/22 10:30 103 H 93 02/16/22 10:20 105 H 17 94 02/16/22 10:17 108 H 18 94 02/16/22 09:54 36.4 C L 119 H 24 97/67 L 88 L Diagnostic Findings Chest X-Ray 02/16/22 10:03 XR chest 1V portable CLINICAL HISTORY: Chest Pain. COMPARISON STUDY: 02/04/2019 TECHNIQUE: 1 view of the chest FINDINGS: Single frontal view of the chest demonstrates the cardiomediastinal silhouette to be within normal limits. There is again a Port-A-Cath in place. Compared to previous study, there has been interval development of a moderately large right pleural effusion with right lung atelectasis/collapse present. Follow-up CT of the chest is recommended for further evaluation. Is also evidence for small left pleural effusion. Left hemithorax otherwise clear. There is no evidence for vascular congestion. There is no acute osseous pathology. IMPRESSION: 1. Interval development of moderately large right pleural effusion with right lung atelectasis/collapse CT of the chest with contrast is recommended to evaluate for possible underlying neoplastic process. 2. Minimal left pleural effusion is also present. ACT 112: Negative or not required by law. Electronically signed by: Tarun Gunderson M.D. 02/16/2022 10:29 AM Chest CTA 02/16/22 10:31 CT angio chest PE protocol CLINICAL HISTORY: L CP, SOB, hypoxia, CA, Right pleur-ex, effusion. COMPARISON STUDY: Portable chest from 02/16/2022 and previous CTA chest from 02/05/2019 CT DOSE: 336.54 mGy.cm TECHNIQUE: CT Angio of the chest was performed.followed by image post processing with coronal, and sagittal MIP reformats. Contrast Volume: Optiray 320, 115 ml FINDINGS: Vasculature: There is homogeneous perfusion of the pulmonary vasculature bilaterally. No intraluminal filling defects or evidence for pulmonary embolus is seen. Airway: The airway is clear. No endobronchial lesion is identified. Lungs and pleural: As seen radiographically, there is a large right pleural effusion comprises many components. Loculated right upper lobe effusion is present along with a separate loculated left lower lobe effusion. Free pleural fluid is also seen. A Pleurx catheter is present on the left within the loculated left lower lobe pleural fluid. There is no evidence for pneumothorax. There is mild aeration of normal appearing right upper and lower lung with atelectasis/collapse of the remaining lung. Not appreciated radiographically is a moderate to large left pleural effusion as well with compressive atelectasis of the left lower lobe. This was most likely subdiaphragmatic in location on the chest radiograph. Additionally, there are multiple spiculated pulmonary nodules present within the left lung characteristic of metastatic disease. These are seen on images 206 within the left upper lobe and 152 within the lingular segment of the left upper lobe. Mediastinum: Right paratracheal and precarinal adenopathy is present with the largest lymph node measuring approximately 1.7 x 1.8 cm. The heart size is within normal limits. Left-sided port catheter is again noted. The thoracic aorta is within normal limits. There is no evidence for pericardial effusion. Axilla: there is also evidence for asymmetric right axillary adenopathy when compared to the left. The largest lymph node measures approximately 1.4 x 1.0 cm. Upper abdomen:The adrenal glands are normal bilaterally. Osseous structures: There is no acute osseous pathology. Impression: 1. No CTA evidence for pulmonary embolus. 2. CT demonstrates large right pleural effusion with loculated right upper lobe and left lower lobe fluid collections along with free pleural fluid. Pleurx catheter is present within the loculated left lower lobe fluid collection. 3. There is associated collapse of majority of the right lung with only mild residual aerated lung present. 4. Not appreciated radiographically is a moderately large left pleural effusion as well with compressive atelectasis involving the left lower lobe. 5. 2 spiculated pulmonary nodules are present in the left representing metastatic disease. 6. Right paratracheal and precarinal adenopathy along with asymmetric right axillary adenopathy. ACT 112: Negative or not required by law. Electronically signed by: Tarun Gunderson M.D. 02/16/2022 11:46 AM Medications Administered Medication List Discontinued Medications Sodium Chloride (Nss 1000ml) 1,000 mls @ 999 mls/hr IV .Q1H1M ONE Stop: 02/16/22 11:04 Last Infusion: 02/16/22 11:40 Dose: 0 mls/hr Documented by: [id number] Admin: 02/16/22 10:36 Dose: 999 mls/hr Documented by: [id number] Ioversol (Optiray 320 125ml) 115 ml IV ONCE ONE Stop: 02/16/22 11:30 Last Admin: 02/16/22 11:29 Dose: 115 ml Documented by: [id number] ECG Rate (beats per minute): 109 Rhythm: sinus tachycardia COVID-19 Results Results COVID-19 Adm Lab Results: RBC 3.98 M/uL (4.2-5.4) L 02/16/22 WBC 10.76 K/uL (4.8-10.8) 02/16/22 Hgb 12.6 g/dL (12.0-16.0) 02/16/22 Hct 38.2 % (37-47) 02/16/22 Plt Count 660 K/uL (130-400) H 02/16/22 Neutrophils (%) (Auto) 64.0 % 02/16/22 Lymphocytes (%) (Auto) 13.3 % 02/16/22 Monocytes # (Auto) 1.89 K/uL (0.11-0.59) H 02/16/22 Eosinophils # (Auto) 0.44 K/uL (0-0.5) 02/16/22 Immature Granulocyte % (Auto) 0.7 % 02/16/22 Neutrophils # (Auto) 6.90 K/uL (1.4-6.5) H 02/16/22 Lymphocytes # (Auto) 1.43 K/uL (1.2-3.4) 02/16/22 Monocytes # (Auto) 1.89 K/uL (0.11-0.59) H 02/16/22 Eosinophils # (Auto) 0.44 K/uL (0-0.5) 02/16/22 Basophils # (Auto) 0.03 K/uL (0-0.2) 02/16/22 Immature Granulocyte # (Auto) 0.07 K/uL (0.00-0.02) H 02/16/22 Na 137 mmol/L (136-145) 02/16/22 K 3.6 mmol/L (3.5-5.1) 02/16/22 Cl 102 mmol/L (98-107) 02/16/22 CO2 27 mmol/L (21-32) 02/16/22 Anion Gap 8 (3-11) 02/16/22 BUN 21 mg/dl (6-23) 02/16/22 Creatinine 0.61 mg/dl (0.6-1.2) 02/16/22 BUN/Creatinine Ratio 34.4 (10-20) H 02/16/22 Glucose Level 81 mg/dl (70-99(Fasting)) 02/16/22 Ca 9.2 mg/dl (8.5-10.1) 02/16/22 Total Bilirubin 0.5 mg/dl (0.2-1.0) 02/16/22 AST/SGOT 39 U/L (13-39) 02/16/22 ALT/SGPT 23 U/L (7-52) 02/16/22 Alkaline Phosphatase 413 U/L (34-104) H 02/16/22 Total Protein 6.1 gm/dl (6.0-8.3) 02/16/22 Albumin 3.1 gm/dl (3.4-5.0) L 02/16/22 Globulin 3.0 gm/dl (2.5-4.0) 02/16/22 Albumin/Globulin Ratio 1.0 (0.9-2) 02/16/22 Adenovirus (PCR) Not Detected (NotDetected) 02/16/22 B. parapertussis DNA (PCR) Not Detected (NotDetected) 02/16/22 B. pertussis DNA (PCR) Not Detected (NotDetected) 02/16/22 C. pneumoniae DNA (PCR) Not Detected (NotDetected) 02/16/22 Coronavirus Type OC43 (PCR) Not Detected (NotDetected) 02/16/22 Coronavirus Type HKU1 (PCR) Not Detected (NotDetected) 02/16/22 Coronavirus Type 229E (PCR) Not Detected (NotDetected) 02/16/22 COVID-19 PCR Not Detected (NotDetected) 02/16/22 Coronavirus Type NL63 (PCR) Not Detected (NotDetected) 02/16/22 Human Metapneumovirus (PCR) Not Detected (NotDetected) 02/16/22 Influenza Virus Type A (PCR) Not Detected (NotDetected) 02/16/22 Influenza Virus Type B (PCR) Not Detected (NotDetected) 02/16/22 M. pneumoniae (PCR) Not Detected (NotDetected) 02/16/22 Parainfluenza Type 1 (PCR) Not Detected (NotDetected) 02/16/22 Parainfluenza Type 2 (PCR) Not Detected (NotDetected) 02/16/22 Parainfluenza Type 3 (PCR) Not Detected (NotDetected) 02/16/22 Parainfluenza Type 4 (PCR) Not Detected (NotDetected) 02/16/22 RSV (PCR) Not Detected (NotDetected) 02/16/22 Enterovirus/Rhinovirus (PCR) Not Detected (NotDetected) 02/16/22 Chest X-Ray 02/16/22 Code Status & VTE Plan Code Status FULL CODE VTE Prophylaxis Plan VTE Prophylaxis will be ordered: No Supervising Physician Co-Signing Physician Notes Is a 51-year-old female with history of metastatic ovarian cancer S/P debulking surgery, currently undergoing chemotherapy, chronic anticoagulation for right upper extremity DVT and other medical problems presents with history of worsening shortness of breath at rest and on exertion associated with intermittent chest discomfort since 2 weeks duration. Patient had Pleurx catheter placed for pleural effusion at [facility] and she typically drains pleural fluid every 3 to 4 days. Patient attributes to having multiple joint pain including rib pain secondary to malignancy. Patient was found to be hypoxic in 88% on room air while in ED. Please review HPI for complete details of presentation. On exam patient is moderately built and nourished, no apparent distress, normocephalic atraumatic, EOMI, decreased breath sounds bilaterally, left Chemo-Port, right Pleurx catheter, S1-S2, no murmur, no pedal edema, abdomen soft, mild generalized tenderness(chronic as per patient), normal bowel sounds, alert, awake, oriented, grossly no focal deficits. Blood work showed no leukocytosis. Hemoglobin 12.6, platelet 660, normal renal function, lactate 1.1, alkaline phosphatase 413, normal troponin. Bio fire negative. CTA showed no PE. Showed findings suggestive of large right pleural effusion with loculated right upper lobe and left lower lobe fluid collections along with free pleural fluid. Also noted collapse of majority of the right lung with only minimal residual aerated lung present. 2 spiculated pulmonary nodules, right paratracheal and precarinal adenopathy, right axillary adenopathy noted. Blood cultures pending. EKG showed sinus tachycardia QTC 436. Patient is admitted for management of malignant pleural effusion, hypoxia. We will drain pleural fluid with existing Pleurx catheter. Oxygen support as needed. Pulmonology will be consulted. Patient echo in November 2021 showed EF 50 to 55%. Further management deferred to pulmonology. I personally reviewed the record. Patient is interviewed and examined at bedside. Patient's care is coordinated with Yuliya Jones PA-C. Please refer to the documentation above for details of patient's presentation and for discussion of other issues.
--- NOTE | 2022-02-16 13:01 | Emergency Department Note ---
Impression & Plan SOB (shortness of breath), Pleural effusion, Acute hypotension ED Provider Note INFORMANT: Patient ED PROVIDER(S): Lamberto Cortes MD CHIEF COMPLAINT: Shortness of breath PLAN: Disposition: Admitted Condition: Good Outpatient prescription management: none Referral: None MEDICAL DECISION MAKING: Patient presented because of shortness of breath. She was mildly hypoxic and blood pressure was mildly low. This resolved with fluids and supplemental oxygen. She was doing well on reassessment. Chest x-ray revealed large right- sided pleural effusion. It would appear that the right Pleurx is not draining all the fluid of properly. There was a small left pleural effusion noted. P atient's blood work was unremarkable. Chest CT imaging was performed. Right- sided pleural effusion was noted to be loculated. No PE. There is collapse of the right lung secondary to the fluid. The small left effusion on x-ray actually was a moderate sized effusion with some concerning nodules noted. The patient would benefit from fluid removal and further work-up and coordination with her primary oncology team. [facility] Patient was evaluated in the ER and admitted for further management. Triage Nursing notes reviewed and agree them. Vital Signs: reviewed and remarkable for mild hypoxia and mild hypotension Differential diagnosis: Diagnostics interpreted by me: EC Lead ECG performed and revealed sinus tachycardia at 109 bpm. Normal Otley, QRS normal. No elevation or depression. No PACs or PVCs Cardiac Monitoring: Cardiac monitoring ordered by me: The patient was placed on continuous cardiac monitoring and observed. It revealed a normal sinus rhythm at 91 beats per minute without ectopy or evidence of dysrhythmia. Imaging studies: Chest x-ray and CT scan as above HPI: The patient is a 51 year old female with a history of ovarian cancer who presents to the Emergency Room with complaints of shortness of breath. This started few weeks and is worse. The patient also notes the following associated symptoms, left sided chest pain. The patient has a history of ovarian cancer. She has a right-sided Pleurx catheter in place. She was treated by Lamberto Solorzano for that. That has been present since last year. She also follows with Dr. Hilario locally. The patient has found no relieving factors. Current pain is rated as 0/10. Pt denies LOC, headache, fevers, chills, diaphoresis, visual changes, neck pain, nausea, vomiting, abdominal pain, back pain, melena, hematochezia, urinary symptoms, numbness, weakness, lymphadenopathy, rash, or other complaints. ROS: See above HPI for pertinent positives & negatives. A total of 10 systems reviewed and were otherwise negative. PAST MEDICAL HISTORY:See Below , ovarian cancer PAST SURGICAL HISTORY:See Below, Mediport, right Pleurx catheter FAMILY HISTORY:See Below SOCIAL HISTORY:See Below, HOME MEDICATIONS:See Below ALLERGIES:See Below VITALS:See Below PHYSICAL EXAMINATION: GENERAL: Awake, alert, dyspneic-appearing, in no distress HENT: Normocephalic, atraumatic. Oropharynx unremarkable. EYES: Normal conjunctiva. Sclera non-icteric. NECK: Inspection normal. Non-tender. Supple. No nuchal rigidity. FROM. No m asses. RESPIRATORY: There is diminished breath sounds on the right side. Clear on the left. No rubs or rales. Increased respiratory effort. CARDIAC: Normal rate. Normal rhythm. No murmurs. No rubs. Extremities warm and well perfused. Pulses equal. No JVD. GI: Soft, non-distended. No tenderness to palpation. No rebound or guarding. No masses. RECTAL: Deferred. MUSCULOSKELETAL: Atraumatic. Chest examination reveals no tenderness. Pleurx catheter noted in the right chest. Mediport noted in the left upper chest. The back is symmetrical on inspection without obvious abnormality. There is no CVA tenderness to palpation. No joint edema. LOWER EXTREMITIES: Calves are equal size bilaterally and non-tender. No edema. No discoloration. NEURO: Normal sensorium. No sensory or motor deficits noted. SKIN: No rash or jaundice noted. Lamberto Cortes MD Past Med/Surg History Medical History (Updated 02/16/22 @ 13:00 by Lamberto Cortes MD) BRCA1 gene mutation positive DVT of upper extremity (deep vein thrombosis) History of blood clots History of chemotherapy HLD (hyperlipidemia) Liver metastases Ovarian cancer Pleural metastasis Surgical History H/O: hysterectomy History of bowel resection S/P appendectomy S/P cholecystectomy S/P splenectomy Family History (Updated 02/16/22 @ 12:42 by Yuliya Jones PA-C) Mother Lung cancer Father Diabetes Hypertension Sister Ovarian cancer Social History (Updated 02/16/22 @ 12:42 by Yuliya Jones PA-C) Smoking Status: Former smoker packs per day: 0.5; Years Smoked: 20; Hx Alcohol Use: No Hx Substance Use: No Preferred Language: Azeri Feels Safe at Home: Yes Allergies Allergies Allergy/AdvReac Type Severity Reaction Status Date / Time No Known Allergies Allergy Verified 02/16/22 12:43 Home Meds Home Medications Medication Instructions Recorded Confirmed acyclovir 400 mg tablet 400 mg PO QAM 02/04/19 02/16/22 esomeprazole magnesium 40 mg 40 mg PO DAILY 02/04/19 02/16/22 capsule,delayed release (Nexium) venlafaxine 37.5 mg 37.5 mg PO BID 02/04/19 02/16/22 capsule,extended release 24 hr (Effexor XR) acetaminophen 500 mg capsule 1,000 mg PO BID 07/26/21 02/16/22 magnesium 200 mg tablet 400 mg PO DAILY 07/26/21 02/16/22 apixaban 2.5 mg tablet (Eliquis) 2.5 mg PO BID 02/16/22 02/16/22 cholecalciferol (vitamin D3) 25 0 mcg PO DAILY 02/16/22 02/16/22 mcg (1,000 unit) tablet (Vitamin D3) cyanocobalamin (vitamin B-12) 25 0 mcg PO DAILY 02/16/22 02/16/22 mcg tablet lorazepam 1 mg tablet 1 mg PO HS 02/16/22 02/16/22 Results & Data (ED) Vital Signs Vital Signs - 24 hr 02/16/22 09:54 02/16/22 10:16 02/16/22 10:17 Temperature 36.4 C L Temperature Source Oral Pulse Rate 119 H 108 H Pulse Rate [Right Finger] Pulse Rate from SpO2 Sensor 109 H Pulse Rhythm Regular Pulse Strength Normal Pulse Strength [Right Finger] Respiratory Rate 24 18 Respiratory Effort / Characteristics Accessory Muscle Use Respiratory Depth Normal Blood Pressure 97/67 L Blood Pressure Mean 77 Blood Pressure Position Sitting Pulse Oximetry 88 L 94 Oxygen Delivery Method Room Air Nasal Cannula Oxygen Flow Rate 2 Sepsis Recent Fever Within 48 Hours No Sepsis New/Unexplained Change in Mental Status No Sepsis Action Taken by Nursing No Action Required 02/16/22 10:20 02/16/22 10:30 02/16/22 10:46 Temperature Temperature Source Pulse Rate 103 H 100 H Pulse Rate [Right Finger] 105 H Pulse Rate from SpO2 Sensor Pulse Rhythm Pulse Strength Pulse Strength [Right Finger] Normal Respiratory Rate 17 17 Respiratory Effort / Characteristics Non-Labored Spontaneous Respiratory Depth Normal Blood Pressure Blood Pressure Mean Blood Pressure Position Pulse Oximetry 94 93 94 Oxygen Delivery Method Nasal Cannula Nasal Cannula Nasal Cannula Oxygen Flow Rate 2 2 2 Sepsis Recent Fever Within 48 Hours Sepsis New/Unexplained Change in Mental Status Sepsis Action Taken by Nursing 02/16/22 11:00 02/16/22 11:16 02/16/22 11:34 Temperature Temperature Source Pulse Rate 93 H 93 H Pulse Rate [Right Finger] Pulse Rate from SpO2 Sensor Pulse Rhythm Pulse Strength Pulse Strength [Right Finger] Respiratory Rate 22 21 Respiratory Effort / Characteristics Respiratory Depth Blood Pressure 106/72 Blood Pressure Mean 83 Blood Pressure Position Pulse Oximetry 94 94 Oxygen Delivery Method Nasal Cannula Nasal Cannula Oxygen Flow Rate 2 2 Sepsis Recent Fever Within 48 Hours Sepsis New/Unexplained Change in Mental Status Sepsis Action Taken by Nursing 02/16/22 11:35 02/16/22 12:00 02/16/22 12:30 Temperature Temperature Source Pulse Rate 93 H 91 H Pulse Rate [Right Finger] Pulse Rate from SpO2 Sensor Pulse Rhythm Pulse Strength Pulse Strength [Right Finger] Respiratory Rate 21 22 Respiratory Effort / Characteristics Respiratory Depth Blood Pressure Blood Pressure Mean Blood Pressure Position Pulse Oximetry 96 93 Oxygen Delivery Method Nasal Cannula Nasal Cannula Oxygen Flow Rate 2 2 Sepsis Recent Fever Within 48 Hours Sepsis New/Unexplained Change in Mental Status Sepsis Action Taken by Nursing Laboratory Data Result diagrams: 02/16/22 10:30 02/16/22 10:30 Lab Results 02/16/22 02/16/22 02/16/22 Range/Units 10:22 10:30 10:30 WBC 10.76 (4.8-10.8) K/uL RBC 3.98 L (4.2-5.4) M/uL Hgb 12.6 (12.0-16.0) g/dL Hct 38.2 (37-47) % MCV 96.0 (80-100) fL MCH 31.7 (25-34) pg MCHC 33.0 (32-36) g/dL RDW Std Deviation 59.4 H (36.4-46.3) fL RDW Coeff of Shahriar 17.5 H (11.5-14.5) % Plt Count 660 H (130-400) K/uL MPV 9.0 (7.4-10.4) fL Immature Gran % (Auto) 0.7 % Neut % (Auto) 64.0 % Lymph % (Auto) 13.3 % [place] % (Auto) 17.6 % Eos % (Auto) 4.1 % Baso % (Auto) 0.3 % Neut # (Auto) 6.90 H (1.4-6.5) K/uL Lymph # (Auto) 1.43 (1.2-3.4) K/uL [place] # (Auto) 1.89 H (0.11-0.59) K/uL Eos # (Auto) 0.44 (0-0.5) K/uL Baso # (Auto) 0.03 (0-0.2) K/uL Immature Gran # (Auto) 0.07 H (0.00-0.02) K/uL Absolute Nucleated RBC 0.15 H (0-0) K/uL Nucleated RBC % (auto) 1.4 % Sodium 137 (136-145) mmol/L Potassium 3.6 (3.5-5.1) mmol/L Chloride 102 (98-107) mmol/L Carbon Dioxide 27 (21-32) mmol/L Anion Gap 8 (3-11) BUN 21 (6-23) mg/dl Creatinine 0.61 (0.6-1.2) mg/dl Est Cr Clr Drug Dosing 111.3 ml/min Est GFR ( Amer) 122.5 ml/min Est GFR (Non-Af Amer) 105.7 ml/min BUN/Creatinine Ratio 34.4 H (10-20) Glucose 81 (70-99(Fasting)) mg/dl Lactate (0.4-2.0) mmol/L Calcium 9.2 (8.5-10.1) mg/dl Total Bilirubin 0.5 (0.2-1.0) mg/dl AST 39 (13-39) U/L ALT 23 (7-52) U/L Alkaline Phosphatase 413 H (34-104) U/L Troponin I High Sens 7.4 (0-14) pg/ml Total Protein 6.1 (6.0-8.3) gm/dl Albumin 3.1 L (3.4-5.0) gm/dl Globulin 3.0 (2.5-4.0) gm/dl Albumin/Globulin Ratio 1.0 (0.9-2) Lipase 21 (11-82) U/L Adenovirus (PCR) Not Detected (NotDetected) B. pertussis DNA (PCR) Not Detected (NotDetected) B.parapertussis DNA PCR Not Detected (NotDetected) C. pneumoniae DNA (PCR) Not Detected (NotDetected) Coronavirus OC43 (PCR) Not Detected (NotDetected) Coronavirus HKU1 (PCR) Not Detected (NotDetected) Coronavirus 229E (PCR) Not Detected (NotDetected) SARS-CoV-2 (PCR) Not Detected (NotDetected) Coronavirus NL63 (PCR) Not Detected (NotDetected) Human Metapneumovir PCR Not Detected (NotDetected) Influenza Type A (PCR) Not Detected (NotDetected) Influenza Type B (PCR) Not Detected (NotDetected) M. pneumoniae (PCR) Not Detected (NotDetected) Parainfluenza 1 (PCR) Not Detected (NotDetected) Parainfluenza 2 (PCR) Not Detected (NotDetected) Parainfluenza 3 (PCR) Not Detected (NotDetected) Parainfluenza 4 (PCR) Not Detected (NotDetected) RSV (PCR) Not Detected (NotDetected) Entero/Rhino (PCR) Not Detected (NotDetected) 02/16/22 Range/Units 10:30 WBC (4.8-10.8) K/uL RBC (4.2-5.4) M/uL Hgb (12.0-16.0) g/dL Hct (37-47) % MCV (80-100) fL MCH (25-34) pg MCHC (32-36) g/dL RDW Std Deviation (36.4-46.3) fL RDW Coeff of Shahriar (11.5-14.5) % Plt Count (130-400) K/uL MPV (7.4-10.4) fL Immature Gran % (Auto) % Neut % (Auto) % Lymph % (Auto) % [place] % (Auto) % Eos % (Auto) % Baso % (Auto) % Neut # (Auto) (1.4-6.5) K/uL Lymph # (Auto) (1.2-3.4) K/uL [place] # (Auto) (0.11-0.59) K/uL Eos # (Auto) (0-0.5) K/uL Baso # (Auto) (0-0.2) K/uL Immature Gran # (Auto) (0.00-0.02) K/uL Absolute Nucleated RBC (0-0) K/uL Nucleated RBC % (auto) % Sodium (136-145) mmol/L Potassium (3.5-5.1) mmol/L Chloride (98-107) mmol/L Carbon Dioxide (21-32) mmol/L Anion Gap (3-11) BUN (6-23) mg/dl Creatinine (0.6-1.2) mg/dl Est Cr Clr Drug Dosing ml/min Est GFR ( Amer) ml/min Est GFR (Non-Af Amer) ml/min BUN/Creatinine Ratio (10-20) Glucose (70-99(Fasting)) mg/dl Lactate 1.1 (0.4-2.0) mmol/L Calcium (8.5-10.1) mg/dl Total Bilirubin (0.2-1.0) mg/dl AST (13-39) U/L ALT (7-52) U/L Alkaline Phosphatase (34-104) U/L Troponin I High Sens (0-14) pg/ml Total Protein (6.0-8.3) gm/dl Albumin (3.4-5.0) gm/dl Globulin (2.5-4.0) gm/dl Albumin/Globulin Ratio (0.9-2) Lipase (11-82) U/L Adenovirus (PCR) (NotDetected) B. pertussis DNA (PCR) (NotDetected) B.parapertussis DNA PCR (NotDetected) C. pneumoniae DNA (PCR) (NotDetected) Coronavirus OC43 (PCR) (NotDetected) Coronavirus HKU1 (PCR) (NotDetected) Coronavirus 229E (PCR) (NotDetected) SARS-CoV-2 (PCR) (NotDetected) Coronavirus NL63 (PCR) (NotDetected) Human Metapneumovir PCR (NotDetected) Influenza Type A (PCR) (NotDetected) Influenza Type B (PCR) (NotDetected) M. pneumoniae (PCR) (NotDetected) Parainfluenza 1 (PCR) (NotDetected) Parainfluenza 2 (PCR) (NotDetected) Parainfluenza 3 (PCR) (NotDetected) Parainfluenza 4 (PCR) (NotDetected) RSV (PCR) (NotDetected) Entero/Rhino (PCR) (NotDetected) Administered Medications Discontinued Medications Sodium Chloride (Nss 1000ml) 1,000 mls @ 999 mls/hr IV .[id number] ONE Stop: 02/16/22 11:04 Last Infusion: 02/16/22 11:40 Dose: 0 mls/hr Documented by: [id number] Admin: 02/16/22 10:36 Dose: 999 mls/hr Documented by: [id number] Ioversol (Optiray 320 125ml) 115 ml IV ONCE ONE Stop: 02/16/22 11:30 Last Admin: 02/16/22 11:29 Dose: 115 ml Documented by: [id number] Imaging Data Radiologist's Impression: Chest X-Ray 02/16/22 10:03 XR chest 1V portable CLINICAL HISTORY: Chest Pain. COMPARISON STUDY: 02/04/2019 TECHNIQUE: 1 view of the chest FINDINGS: Single frontal view of the chest demonstrates the cardiomediastinal silhouette to be within normal limits. There is again a Port-A-Cath in place. Compared to previous study, there has been interval development of a moderately large right pleural effusion with right lung atelectasis/collapse present. Follow-up CT of the chest is recommended for further evaluation. Is also evidence for small left pleural effusion. Left hemithorax otherwise clear. There is no evidence for vascular congestion. There is no acute osseous pathology. IMPRESSION: 1. Interval development of moderately large right pleural effusion with right lung atelectasis/collapse CT of the chest with contrast is recommended to evaluate for possible underlying neoplastic process. 2. Minimal left pleural effusion is also present. ACT 112: Negative or not required by law. Electronically signed by: Tarun Gunderson M.D. 02/16/2022 10:29 AM Chest CTA 02/16/22 10:31 CT angio chest PE protocol CLINICAL HISTORY: L CP, SOB, hypoxia, CA, Right pleur-ex, effusion. COMPARISON STUDY: Portable chest from 02/16/2022 and previous CTA chest from 02/05/2019 CT DOSE: 336.54 mGy.cm TECHNIQUE: CT Angio of the chest was performed.followed by image post processing with coronal, and sagittal MIP reformats. Contrast Volume: Optiray 320, 115 ml FINDINGS: Vasculature: There is homogeneous perfusion of the pulmonary vasculature bilaterally. No intraluminal filling defects or evidence for pulmonary embolus is seen. Airway: The airway is clear. No endobronchial lesion is identified. Lungs and pleural: As seen radiographically, there is a large right pleural effusion comprises many components. Loculated right upper lobe effusion is present along with a separate loculated left lower lobe effusion. Free pleural fluid is also seen. A Pleurx catheter is present on the left within the loculated left lower lobe pleural fluid. There is no evidence for pneumothorax. There is mild aeration of normal appearing right upper and lower lung with atelectasis/collapse of the remaining lung. Not appreciated radiographically is a moderate to large left pleural effusion as well with compressive atelectasis of the left lower lobe. This was most likely subdiaphragmatic in location on the chest radiograph. Additionally, there are multiple spiculated pulmonary nodules present within the left lung characteristic of metastatic disease. These are seen on images 206 within the left upper lobe and 152 within the lingular segment of the left upper lobe. Mediastinum: Right paratracheal and precarinal adenopathy is present with the largest lymph node measuring approximately 1.7 x 1.8 cm. The heart size is within normal limits. Left-sided port catheter is again noted. The thoracic aorta is within normal limits. There is no evidence for pericardial effusion. Axilla: there is also evidence for asymmetric right axillary adenopathy when co mpared to the left. The largest lymph node measures approximately 1.4 x 1.0 cm. Upper abdomen:The adrenal glands are normal bilaterally. Osseous structures: There is no acute osseous pathology. Impression: 1. No CTA evidence for pulmonary embolus. 2. CT demonstrates large right pleural effusion with loculated right upper lobe and left lower lobe fluid collections along with free pleural fluid. Pleurx catheter is present within the loculated left lower lobe fluid collection. 3. There is associated collapse of majority of the right lung with only mild residual aerated lung present. 4. Not appreciated radiographically is a moderately large left pleural effusion as well with compressive atelectasis involving the left lower lobe. 5. 2 spiculated pulmonary nodules are present in the left representing metastatic disease. 6. Right paratracheal and precarinal adenopathy along with asymmetric right axillary adenopathy. ACT 112: Negative or not required by law. Electronically signed by: Tarun Gunderson M.D. 02/16/2022 11:46 AM Discharge Plan Visit Data Chief Complaint: Cardiac Assessment Stated Complaint: SOB, CHEST PAIN ED Provider: Lamberto Cortes Discharge Problem: SOB (shortness of breath), Pleural effusion, Acute hypotension Forms Stand Alone Forms: [facility] Prescriptions Prescriptions: No Action venlafaxine [Effexor XR] 37.5 mg Capsule,Extended Release 24hr 37.5 mg PO BID RF: 0 acyclovir 400 mg Tablet 400 mg PO QAM RF: 0 esomeprazole magnesium [Nexium] 40 mg Capsule,Delayed Release(Dr/Ec) 40 mg PO DAILY RF: 0 acetaminophen 500 mg Capsule 1,000 mg PO BID RF: 0 magnesium 200 mg Tablet 400 mg PO DAILY RF: 0 Vitamin B-12 25 mcg Tablet 0 mcg PO DAILY RF: 0 cholecalciferol (vitamin D3) [Vitamin D3] 25 mcg (1,000 unit) Tablet 0 mcg PO DAILY RF: 0 Eliquis 2.5 mg tablet 2.5 mg PO BID RF: 0 lorazepam 1 mg tablet 1 mg PO HS RF: 0 Referrals Referrals: Rossy Hilario MD [Primary Care Provider] -
--- NOTE | 2022-02-16 14:14 | XRay Report ---
XR chest 1V portable CLINICAL HISTORY: repeat s/p fluid removal COMPARISON STUDY: Chest radiograph and chest CT performed earlier today. FINDINGS: Left subclavian [id number] is in place. A right pleural catheter remains in place. Right pleural effusion has significantly decreased in size since prior exam. A small left pleural effusion is similar to prior study. Right lung aeration has slightly improved. Cardiomediastinal silhouette i s stable. There is no pneumothorax. IMPRESSION: 1. Significant decrease in size of the right pleural effusion. Improved right lung aeration. 2. Small left pleural effusion. 3. No pneumothorax. ACT 112: Negative or not required by law. Electronically signed by: Richadr Jaime M.D. 02/16/2022 2:12 PM
--- NOTE | 2022-02-16 15:48 | Pulmonary Consultation ---
Date of Consultation February 16, 2022 Assessment & Plan (1) Chronic bilateral pleural effusions: (2) Hypoxia: 51-year-old female with a history of metastatic ovarian cancer refractory to multiple forms of chemotherapy presenting to the ER due to shortness of breath. She was found to have loculations of the right pleural effusion likely due to the chronicity of the indwelling pleural catheter. We will send the fluid for culture and analysis. Doubtful of an infection at this time. It seems that the added suction of the Vacutainer allowed for the pleural effusion to be evacuated. I do not think we need tPA or dornase at this time to be instilled via the indwelling catheter. She does have a moderate sized free-flowing left pleural effusion. We will consider thoracentesis tomorrow of the left pleural space if symptoms are refractory to drainage of the right pleural space with the indwelling pleural catheter. Thank you for the consultation and the ability to participate in this patient's care. We will follow with you. History of Present Illness Reason for Consultation: Loculated pleural effusion History of Present Illness 51-year-old female with a past medical history of malignant ovarian cancer with widely metastatic disease diagnosed in 2016 presenting to the hospital due to increasing shortness of breath. She notes that she regularly drains her right- sided indwelling pleural catheter to a bag via gravity every couple of days. Lately the drainage has increased. Today he had difficulty draining the fluid and needed to use a Vacutainer in the ER with removal of 600 mL of fluid. She notes that the fluid appears similar to have not appeared previously. She has not noticed any exudate forming during the catheter. She does note excoriation of the surrounding skin due to the bandaging that she has to use. The pleural fluid was sent to the lab and this will be cultured and sent for chemistries. She notes that she has had the indwelling pleural catheter in place for 9 months and this was placed at [facility]. Otherwise, she denies any fevers, chills, night sweats or chest pain. She does note rib pain beneath her breasts occasionally when she coughs. CT of her chest was completed today which demonstrated large right pleural effusion with loculations. A moderate size left pleural effusion is noted. 2 spiculated pulmonary nodules were noted. Last PET/CT that we have in our system is from 02/04/2020 which indicated pleural-based metastatic disease at the right lung base and trace right pleural effusion. Allergies Allergy/AdvReac Type Severity Reaction Status Date / Time No Known Allergies Allergy Verified 02/16/22 12:43 Home Medications Medication Instructions Recorded Confirmed Type acyclovir 400 mg tablet 400 mg PO QAM 02/04/19 02/16/22 History esomeprazole magnesium 40 mg 40 mg PO DAILY 02/04/19 02/16/22 History capsule,delayed release (Nexium) venlafaxine 37.5 mg 37.5 mg PO BID 02/04/19 02/16/22 History capsule,extended release 24 hr (Effexor XR) acetaminophen 500 mg capsule 1,000 mg PO BID 07/26/21 02/16/22 History magnesium 200 mg tablet 400 mg PO DAILY 07/26/21 02/16/22 History apixaban 2.5 mg tablet (Eliquis) 2.5 mg PO BID 02/16/22 02/16/22 History cholecalciferol (vitamin D3) 25 0 mcg PO DAILY 02/16/22 02/16/22 History mcg (1,000 unit) tablet (Vitamin D3) cyanocobalamin (vitamin B-12) 25 0 mcg PO DAILY 02/16/22 02/16/22 History mcg tablet lorazepam 1 mg tablet 1 mg PO HS 02/16/22 02/16/22 History Patient History Medical History (Updated 02/16/22 @ 15:45 by Earnest Schwartz MD) BRCA1 gene mutation positive Chronic bilateral pleural effusions DVT of upper extremity (deep vein thrombosis) History of blood clots History of chemotherapy HLD (hyperlipidemia) Liver metastases Ovarian cancer Pleural metastasis Surgical History H/O: hysterectomy History of bowel resection S/P appendectomy S/P cholecystectomy S/P splenectomy Family History (Updated 02/16/22 @ 12:42 by Yuliya Jones PA-C) Mother Lung cancer Father Diabetes Hypertension Sister Ovarian cancer Social History (Updated 02/16/22 @ 12:42 by Yuliya Jones PA-C) Smoking Status: Former smoker packs per day: 0.5; Years Smoked: 20; Hx Alcohol Use: No Hx Substance Use: No Preferred Language: Luxembourgish Feels Safe at Home: Yes Review of Systems Review of Systems: All systems reviewed & are unremarkable except as noted in HPI & below Physical Exam Constitutional: WD/WN, vitals as above Eyes: PERRL, conjunctivae normal, anicteric sclerae Cardiovascular: Diminished lung sounds in the bilateral bases. No wheezes or rales. Chest (Breasts): Additional Comments: Indwelling pleural catheter noted in the right hemithorax. Site appears clear dry and intact. There are surrounding excoriations in the skin. Gastrointestinal (Abdomen): normal bowel sounds, soft, nontender, no hepatosplenomegaly Old healed scars noted Musculoskeletal: no cyanosis or clubbing, extremities motor strength 5/5 Skin: no rashes, warm and dry Neurologic: PERRL, EOMI, accommodation nl, no face palsy, no dysarthria Psychiatric: A+Ox3, euthymic affect Results & Data Results & Data ([facility]) Vital Signs (Past 12 Hours) Vital Signs Temp Pulse Pulse Resp BP Pulse Ox 02/16/22 14:30 120/74 02/16/22 14:00 95 H 24 108/72 93 02/16/22 13:54 99 H 23 112/76 94 02/16/22 13:30 101 H 24 02/16/22 13:00 95 H 114/82 92 02/16/22 12:55 98 H 24 105/69 90 02/16/22 12:30 91 H 22 93 02/16/22 12:00 93 H 21 02/16/22 11:35 96 02/16/22 11:34 106/72 02/16/22 11:16 93 H 21 94 02/16/22 11:00 93 H 22 94 02/16/22 10:46 100 H 17 94 02/16/22 10:30 103 H 93 02/16/22 10:20 105 H 17 94 02/16/22 10:17 108 H 18 94 02/16/22 09:54 36.4 C L 119 H 24 97/67 L 88 L PG Care Time/CCT Total # of Minutes Spent Total Time Spent with Patient: Total time spent is greater than 50% in coordination of care (as documented) at patient's floor/unit and/or counseling patient: Coding Level of Care Code 39761 Inpt Consult Level 4 Diagnoses Chronic bilateral pleural effusions J90 Hypoxia R09.02
[2022-02-16] MEDS ORDERED: ACETAMINOPHEN 325 MG TAB ONE (15:58)
[2022-02-16 16:19] LABS: Glucose Pleural Fluid 10 mg/dl; LDH Pleural Fluid 374 U/L; Total Protein Pleural Fluid < 3.0 gm/dl
[2022-02-16] MEDS ORDERED: ONDANSETRON INJ 2 MG/ML 2 ML VIAL IV PRN (16:22)
[2022-02-16] MEDS ORDERED: POLYETHYLENE (MIRALAX) 17 GM PACK PO PRN (16:22)
[2022-02-16] MEDS ORDERED: ALUMINUM/MAGNESIUM SUSP 30 ML UDC PO PRN (16:22)
[2022-02-16] MEDS ORDERED: MAGNESIUM HYDROXIDE SUSP 30 ML UDC PO PRN (16:22)
[2022-02-16] MEDS ORDERED: ALBUTEROL 0.083% NEBU SOLN 3 ML VIAL NEB PRN (16:22)
[2022-02-16 16:49] LABS: Appearance Pleural Fluid HAZY; Basophils, Fluid 0 %; Color Pleural Fluid PALE YELLOW; Eosinophils, Fluid 1 %; Lymphocytes, Fluid 70 %; Mono,Macrophage,Mesothelial 28 %; Neutrophils, Fluid 1 %; RBC Pleural Fluid (A) < 3000 /uL; Source Pleural Fluid RIGHT LUNG; WBC Pleural Fluid (A) 75 /uL
[2022-02-16] MEDS ORDERED: LORazepam 1 MG TAB PO SCH (21:00)
[2022-02-16] MEDS: ACETAMINOPHEN 325 MG TAB PO PRN (21:39)
[2022-02-16] MEDS: APIXABAN 2.5 MG TAB PO SCH (21:40)
[2022-02-16] MEDS: VENLAFAXINE HCL XR 37.5 MG CAPXR PO SCH (21:41)
[2022-02-17] MEDS ORDERED: HEPARIN 100 UNIT/ML 5ML FLUSH FLUSH PRN (02:20)
[2022-02-17] MEDS: ACETAMINOPHEN 325 MG TAB PO PRN ×3 (04:30→13:35)
--- NOTE | 2022-02-17 06:26 | Electrocardiogram Report ---
Test Reason : Blood Pressure : / mmHG Vent. Rate : 109 BPM Atrial Rate : 109 BPM P-R Int : 140 ms QRS Dur : 078 ms QT Int : 324 ms P-R-T Axes : 018 052 039 degrees QTc Int : 436 ms Sinus tachycardia Otherwise normal ECG When compared with ECG of 04-FEB-2019 21:06, QRS voltage has decreased T wave inversion no longer evident in Lateral leads Confirmed by Addison Jacobsen ([id number]) on 02/17/2022 6:26:31 AM Referred By: Confirmed By:Addison Jacobsen
[2022-02-17 06:27] LABS: Basophils # (auto) 0.03 K/uL (0-0.2); Basophils % (auto) 0.3 %; Eosinophils # (auto) 0.39 K/uL (0-0.5); Eosinophils % (auto) 4.3 %; Hematocrit (blood only) 37.7 % (37-47); Hemoglobin 12.2 g/dL (12.0-16.0); Immature Granulocytes # (auto) 0.09 K/uL (0.00-0.02); Lymphocytes # (auto) 0.94 K/uL (1.2-3.4); Lymphocytes % (auto) 10.4 %; Mean Corpuscular Hemoglobin 31.1 pg (25-34); Mean Corpuscular Hgb Conc 32.4 g/dL (32-36); Mean Corpuscular Volume 96.2 fL (80-100); Monocytes # (auto) 1.87 K/uL (0.11-0.59); Monocytes % (auto) 20.7 %; Neutrophils # (auto) 5.72 K/uL (1.4-6.5); Neutrophils % (auto) 63.3 %; Nucleated RBC # (auto) 0.14 K/uL (0-0); Nucleated RBC % (auto) 1.5 %; Platelet Count 648 K/uL (130-400); RDW Coefficient of Variation 17.5 % (11.5-14.5); RDW Standard Deviation 59.6 fL (36.4-46.3); Red Blood Count 3.92 M/uL (4.2-5.4); White Blood Count 9.04 K/uL (4.8-10.8)
[2022-02-17 06:53] LABS: Albumin Level 2.9 gm/dl (3.4-5.0); BUN Creatinine Ratio 27.9 (10-20); Bilirubin,Total 0.4 mg/dl (0.2-1.0); Calcium 8.9 mg/dl (8.5-10.1); Creatinine Clr Calc Pharmacy 111.3 ml/min; Est GFR (African American) 122.5 ml/min; Est GFR (Non-African American) 105.7 ml/min; Globulin 2.8 gm/dl (2.5-4.0); Magnesium 1.2 mg/dl (1.7-2.4); Potassium 3.8 mmol/L (3.5-5.1); Total Protein 5.7 gm/dl (6.0-8.3)
[2022-02-17] MEDS: VENLAFAXINE HCL XR 37.5 MG CAPXR PO SCH (08:16)
[2022-02-17] MEDS: APIXABAN 2.5 MG TAB PO SCH (08:17)
[2022-02-17] MEDS ORDERED: MAGNESIUM OXIDE 400 MG TAB PO SCH (09:00)
[2022-02-17] MEDS ORDERED: PANTOprazole 40 MG TAB PO SCH (09:00)
[2022-02-17] MEDS ORDERED: CHOLECALCIFEROL 1,000 UNITS 25 MCG TAB PO SCH (09:00)
[2022-02-17] MEDS ORDERED: ACYCLOVIR 400 MG TAB PO SCH (09:00)
[2022-02-17] MEDS ORDERED: CYANOCOBALAMIN (B-12) 500 MCG TABLET PO SCH (09:00)
--- NOTE | 2022-02-17 13:48 | Pulmonology Progress Note ---
Date of Service February 17, 2022 Assessment & Plan (1) Chronic bilateral pleural effusions: (2) Hypoxia: Plan: 51-year-old female with a history of metastatic ovarian cancer refractory to multiple forms of chemotherapy presenting to the ER due to shortness of breath. She was found to have loculations of the right pleural effusion likely due to the chronicity of the indwelling pleural catheter. Pleural fluid and indwelling catheter do not appear infected. No antibiotics needed at this time. Would recommend the patient transition to Vacutainer's as opposed to draining to a bag with her rocket catheter given the loculations. We can always instill tPA dornase in the future to break up these loculations. She would like to hold off on a thoracentesis of the left hemithorax at this time given that her symptoms have significantly improved. I will be happy to assist her on an outpatient basis in the future if required. I think she is safe to be discharged home. This was discussed with her hospitalist who is in agreement. Thank you for the consultation and the ability to participate in this patient's care. Admission and Anticipated Discharge Date Admission Date: February 16, 2022 Subjective Shortness of breath significantly improved after drainage of a rocking catheter yesterday. She is very eager to go home. She is currently on room air. Review of Systems Review of Systems: All systems reviewed & are unremarkable except as noted in HPI & below Physical Exam Constitutional: WD/WN, vitals as above Eyes: PERRL, conjunctivae normal, anicteric sclerae Gastrointestinal (Abdomen): normal bowel sounds, soft, nontender, no hepatosplenomegaly Musculoskeletal: no cyanosis or clubbing, extremities motor strength 5/5 Skin: no rashes, warm and dry Neurologic: PERRL, EOMI, accommodation nl, no face palsy, no dysarthria Psychiatric: A+Ox3, euthymic affect Results & Data Results & Data ([facility]) Vital Signs (Past 12 Hours) Vital Signs Temp Pulse Pulse Resp BP Pulse Ox 02/17/22 11:00 36.8 C 102 H 18 104/66 97 02/17/22 07:21 103 H 02/17/22 07:15 36.8 C 96 H 18 94/64 L 94 02/17/22 04:03 36.8 C 105 H 18 121/85 91 PG Care Time/CCT Total # of Minutes Spent Total Time Spent with Patient: Total time spent is greater than 50% in coordination of care (as documented) at patient's floor/unit and/or counseling patient: Coding Level of Care Code 60498 Subseq Hosp Care Lvl 2 Diagnoses Chronic bilateral pleural effusions J90 Hypoxia R09.02
--- NOTE | 2022-02-17 14:34 | Hospitalist Progress Note ---
Date of Service February 17, 2022 Assessment & Plan (1) SOB (shortness of breath): (2) Pleural effusion: (3) Primary cancer of ovary with widespread metastatic disease: (4) DVT of upper extremity (deep vein thrombosis): (5) Hypoxia: Plan: Pt is a 51 yo female who has significant past medical history of malignant ovarian cancer with lung and liver mets initially diagnosed in 2016 s/p debulking surgery and 6 cycles of adjuvant chemotherapy, BRCA1 positive, recurrent disease noted in November of 2018 more in the liver and left periaortic lymph node s/p resection, October 2019 recurrent disease involving the liver and retroperitoneal lesion malignant pleural effusion. She has right-sided Pleurx catheter in place. She follows with [facility] interventional and pulmonology where she had pleurex placed 9 months ago. She also has history of upper extremity DVT currently anticoagulated on Eliquis. Currently she is receiving treatment with doxorubicin. Her last chemotherapy was on 01/31/2022. Hypoxia SOB Malignant Pleural Effusion Metastatic ovarian Ca to liver, lung and pleura Follows with Dr. Chad Hilario and Dr. Molly Thompson of [facility] Also follows with [facility] pulm and interventional radiology admitted to PCU Pulmonary medicine consulted to eval for loculated effusions b/l ? if further intervention required Pt was able to remove 600ml of pleural fluid in ED, also removed additional 250 mL today (02/17) Pleural fluid and indwelling catheter do not appear infected, no antibiotics needed Per pulm - Would recommend the patient transition to Vacutainer's as opposed to draining to a bag with her rocket catheter given the loculations. We can always instill tPA dornase in the future to break up these loculations. She would like to hold off on a thoracentesis of the left hemithorax at this time given that her symptoms have significantly improved. I will be happy to assist her on an outpatient basis in the future if required. I think she is safe to be discharged home. Currently she is saturating 97% on room air She is feeling well, and is eager to be discharged home. DVT Upper ext continue eliquis Dispo: Plan to DC home PCP: Javid Hilario FULL CODE Admission and Anticipated Discharge Date Admission Date: February 16, 2022 Subjective Patient seen in follow-up of shortness of breath, due to pleural effusions Pleural effusion able to drain, currently patient is sitting up in bed, in no acute distress She is breathing comfortably on room air Seen by pulmonary medicine, jarrett for discharge Patient otherwise denies any fevers, chills, shortness of breath, chest pain, abdominal pain, nausea vomiting Review of Systems Review of Systems: All systems reviewed & are unremarkable except as noted in Subjective Physical Exam Physical Exam: Constitutional: WD/WN, in NAD, sitting up in bed, pleasant, conversing easily, on RA Head: Normocephalic, Atraumatic Eyes: PERRL, EOMI, conjunctivae normal, anicteric sclerae ENMT: external ear and nose normal, oropharynx normal Neck: normal visual inspection Respiratory: normal respiratory effort, somewhat diminished breath sounds at bases, otherwise CTAB, no wheezing. R pleurx in place, surrounding skin with excoriation from dressing, no evidence of infection Cardiovascular: RRR, no murmur, no edema Chest: normal inspection of chest Abdomen: normal bowel sounds, soft, nontender Musculoskeletal: AROM x 4 Skin:warm and dry normal turgor Neurologic: PERRL, EOMI, no face palsy, no dysarthria, moves all extremities Psychiatric: A+Ox3, euthymic affect Results & Data Results & Data ([facility]) Vital Signs (Past 12 Hours) Vital Signs Temp Pulse Pulse Resp BP Pulse Ox 02/17/22 11:00 36.8 C 102 H 18 104/66 97 02/17/22 07:21 103 H 02/17/22 07:15 36.8 C 96 H 18 94/64 L 94 02/17/22 04:03 36.8 C 105 H 18 121/85 91 Laboratory Results 02/17/22 02/17/22 02/16/22 Range/Units 06:00 06:00 14:19 WBC 9.04 (4.8-10.8) K/uL RBC 3.92 L (4.2-5.4) M/uL Hgb 12.2 (12.0-16.0) g/dL Hct 37.7 (37-47) % MCV 96.2 (80-100) fL MCH 31.1 (25-34) pg MCHC 32.4 (32-36) g/dL RDW Std Deviation 59.6 H (36.4-46.3) fL RDW Coeff of Shahriar 17.5 H (11.5-14.5) % Plt Count 648 H (130-400) K/uL MPV 9.0 (7.4-10.4) fL Immature Gran % (Auto) 1.0 % Neut % (Auto) 63.3 % Lymph % (Auto) 10.4 % Linn % (Auto) 20.7 % Eos % (Auto) 4.3 % Baso % (Auto) 0.3 % Neut # (Auto) 5.72 (1.4-6.5) K/uL Lymph # (Auto) 0.94 L (1.2-3.4) K/uL Linn # (Auto) 1.87 H (0.11-0.59) K/uL Eos # (Auto) 0.39 (0-0.5) K/uL Baso # (Auto) 0.03 (0-0.2) K/uL Immature Gran # (Auto) 0.09 H (0.00-0.02) K/uL Absolute Nucleated RBC 0.14 H (0-0) K/uL Nucleated RBC % (auto) 1.5 % Sodium 137 (136-145) mmol/L Potassium 3.8 (3.5-5.1) mmol/L Chloride 102 (98-107) mmol/L Carbon Dioxide 27 (21-32) mmol/L Anion Gap 8 (3-11) BUN 17 (6-23) mg/dl Creatinine 0.61 (0.6-1.2) mg/dl Est Cr Clr Drug Dosing 111.3 ml/min Est GFR ( Amer) 122.5 ml/min Est GFR (Non-Af Amer) 105.7 ml/min BUN/Creatinine Ratio 27.9 H (10-20) Glucose 78 (70-99(Fasting)) mg/dl Calcium 8.9 (8.5-10.1) mg/dl Magnesium 1.2 L (1.7-2.4) mg/dl Total Bilirubin 0.4 (0.2-1.0) mg/dl AST 33 (13-39) U/L ALT 19 (7-52) U/L Alkaline Phosphatase 401 H (34-104) U/L Total Protein 5.7 L (6.0-8.3) gm/dl Albumin 2.9 L (3.4-5.0) gm/dl Globulin 2.8 (2.5-4.0) gm/dl Albumin/Globulin Ratio 1.0 (0.9-2) Fluid Neutrophils % % Fluid Lymphocytes % % Fluid Eosinophils % % Fluid Basophils % % Fluid Meso/Macro/Linn % % Fluid Comment Pleural Fluid Source Pleural Color Pleural Appearance Pleural pH (7.3-7.4) Pleural WBC /uL Pleural RBC /uL Pleural Total Protein < 3.0 gm/dl Pleural LDH 374 U/L Pleural Glucose 10 mg/dl 02/16/22 02/16/22 Range/Units 14:19 14:19 WBC (4.8-10.8) K/uL RBC (4.2-5.4) M/uL Hgb (12.0-16.0) g/dL Hct (37-47) % MCV (80-100) fL MCH (25-34) pg MCHC (32-36) g/dL RDW Std Deviation (36.4-46.3) fL RDW Coeff of Shahriar (11.5-14.5) % Plt Count (130-400) K/uL MPV (7.4-10.4) fL Immature Gran % (Auto) % Neut % (Auto) % Lymph % (Auto) % Linn % (Auto) % Eos % (Auto) % Baso % (Auto) % Neut # (Auto) (1.4-6.5) K/uL Lymph # (Auto) (1.2-3.4) K/uL Linn # (Auto) (0.11-0.59) K/uL Eos # (Auto) (0-0.5) K/uL Baso # (Auto) (0-0.2) K/uL Immature Gran # (Auto) (0.00-0.02) K/uL Absolute Nucleated RBC (0-0) K/uL Nucleated RBC % (auto) % Sodium (136-145) mmol/L Potassium (3.5-5.1) mmol/L Chloride (98-107) mmol/L Carbon Dioxide (21-32) mmol/L Anion Gap (3-11) BUN (6-23) mg/dl Creatinine (0.6-1.2) mg/dl Est Cr Clr Drug Dosing ml/min Est GFR ( Amer) ml/min Est GFR (Non-Af Amer) ml/min BUN/Creatinine Ratio (10-20) Glucose (70-99(Fasting)) mg/dl Calcium (8.5-10.1) mg/dl Magnesium (1.7-2.4) mg/dl Total Bilirubin (0.2-1.0) mg/dl AST (13-39) U/L ALT (7-52) U/L Alkaline Phosphatase (34-104) U/L Total Protein (6.0-8.3) gm/dl Albumin (3.4-5.0) gm/dl Globulin (2.5-4.0) gm/dl Albumin/Globulin Ratio (0.9-2) Fluid Neutrophils % 1 % Fluid Lymphocytes % 70 % Fluid Eosinophils % 1 % Fluid Basophils % 0 % Fluid Meso/Macro/Linn % 28 % Fluid Comment Pleural Fluid Source RIGHT LUNG Pleural Color PALE YELLOW Pleural Appearance HAZY Pleural pH 7.36 (7.3-7.4) Pleural WBC 75 /uL Pleural RBC < 3000 /uL Pleural Total Protein gm/dl Pleural LDH U/L Pleural Glucose mg/dl Medications Administered Current Inpatient Medications Acetaminophen (Acetaminophen 325 Mg Tab) 650 mg PO Q4H PRN PRN Reason: Pain or Fever Stop: 03/18/22 16:21 Last Admin: 02/17/22 13:35 Dose: 650 mg Documented by: Acyclovir (Acyclovir 400 Mg Tab) 400 mg PO QAM [facility] Stop: 03/19/22 08:59 Last Admin: 02/17/22 08:17 Dose: 400 mg Documented by: Al Hydrox/Mg Hydrox/Simethicone (Aluminum/Magnesium Susp 30 Ml Udc) 15 ml PO Q4H PRN PRN Reason: Dyspepsia Stop: 03/18/22 16:21 Albuterol (Albuterol 0.083% Nebu Soln 3 Ml Vial) 2.5 mg NEB Q6R PRN; Protocol PRN Reason: Shortness Of Breath Or Wheezing Stop: 03/18/22 16:21 Apixaban (Apixaban 2.5 Mg Tab) 2.5 mg PO BID [facility] Stop: 03/18/22 20:59 Last Admin: 02/17/22 08:17 Dose: 2.5 mg Documented by: Cyanocobalamin (Cyanocobalamin (B-12) 500 Mcg Tablet) 500 mcg PO DAILY [facility] Stop: 03/19/22 08:59 Last Admin: 02/17/22 08:17 Dose: 500 mcg Documented by: Heparin Sodium (Porcine) (Heparin 100 Unit/Ml 5ml Flush) 5 ml FLUSH PRN PRN PRN Reason: Flush Stop: 03/19/22 02:19 Last Admin: 02/17/22 10:20 Dose: 5 ml Documented by: Lorazepam (Lorazepam 1 Mg Tab) 1 mg PO HS [facility] Stop: 03/18/22 20:59 Last Admin: 02/16/22 21:40 Dose: 1 mg Documented by: Magnesium Hydroxide (Magnesium Hydroxide Susp 30 Ml Udc) 30 ml PO Q12H PRN PRN Reason: Constipation Stop: 03/18/22 16:21 Magnesium Oxide (Magnesium Oxide 400 Mg Tab) 400 mg PO DAILY [facility] Stop: 03/19/22 08:59 Last Admin: 02/17/22 08:17 Dose: 400 mg Documented by: Ondansetron HCl (Ondansetron Inj 2 Mg/Ml 2 Ml Vial) 4 mg IV Q6H PRN PRN Reason: Nausea Stop: 03/18/22 16:21 Last Admin: 02/17/22 08:18 Dose: 4 mg Documented by: Pantoprazole Sodium (Pantoprazole 40 Mg Tab) 40 mg PO DAILY [facility] Stop: 03/19/22 08:59 Last Admin: 02/17/22 08:17 Dose: 40 mg Documented by: Polyethylene Glycol (Polyethylene (Miralax) 17 Gm Pack) 17 gm PO DAILY PRN PRN Reason: Constipation Stop: 03/18/22 16:21 Venlafaxine HCl (Venlafaxine Hcl Xr 37.5 Mg Capxr) 37.5 mg PO BID [facility] Stop: 03/18/22 20:59 Last Admin: 02/17/22 08:16 Dose: 37.5 mg Documented by: Vitamin D (Cholecalciferol 1,000 Units 25 Mcg Tab) 2,000 units PO DAILY [facility] Stop: 03/19/22 08:59 Last Admin: 02/17/22 08:17 Dose: 2,000 units Documented by:
--- NOTE | 2022-02-17 15:08 | Discharge Summary ---
Date of Service February 17, 2022 Admission HPI Per Admitting Provider This is a 51-year-old female who has significant past medical history of malignant ovarian cancer with long and liver mets initially diagnosed in 2016 status post debulking surgery and 6 cycles of adjuvant chemotherapy, BRCA1 positive, recurrent disease noted in November of 2018 more in the liver and left periaortic lymph node status post resection, October 2019 recurrent disease involving the liver and retroperitoneal lesion malignant pleural effusion. She has right-sided Pleurx catheter in place. She follows with [facility] interventional and pulmonology where she had pleurex placed 9 months ago. She also has history of upper extremity DVT currently anticoagulated on Eliquis. Currently she is receiving treatment with doxorubicin. Her last chemotherapy was on 01/31/2022. She did receive IV fluids with heme-onc on 02/08/2022. SHe gets a PET scan every 3 months. Last PET scan did show fluid developing in L side of lung. She follows with Dr. Molly Thompson at [facility]. She comes in today due to unable to breath for 2 weeks. 4 days ago she took 350ml off the catheter. She has noticed it has been taking longer to get fluid off. Typically every 3-4 days she takes fluid off. She notices SOB with exertion and at rest. Feels like she is having a hard time taking a deep breath, "I'm trying to suck my lungs inside out." She further complains of L sided rib pain under L breast. Occasionally she gets a shooting pain on and off a lot of different places in abdomen or down neck. Also complains of bone pain. Mostly in her long bones. She manages pain 1g APAP AM and PM. Howeer it is no longer working. She denies recent f/c/s, dizziness, lightheaded, chest pain, cough, vomiting, hematemesis, melena, hematochezia, dysuria, increased freq/urg, hematuria and abdominal pain. She does complain of nausea, loss of appetite, 10lb weight loss since starting the Doxil 4 cycles ago, & freq loose stool. Admission Exam Per Admitting Provider Constitutional: WD/WN, vitals as above, NAD, sitting up in bed, pleasant, conversing easily Head: Normocephalic, Atraumatic Eyes: PERRL, conjunctivae normal, anicteric sclerae ENMT: external ear and nose normal, oropharynx normal Neck: trachea midline, no thyromegaly normal visual inspection Respiratory: normal respiratory effort, Diminished to absent breath sounds b/l R > L, + R pleurx in place, surrounding skin with excoriation from dressing, no evidence of infection, no wheeze, rales, rhonchi. Normal insp/exp effort, no accessory muscle use on 2L of O2 via NC Cardiovascular: RRR, no murmur, no edema Vessels: no JVD or carotid bruit Chest: normal inspection of chest Abdomen: normal bowel sounds, soft, nontender, no hepatosplenomegaly Musculoskeletal: no cyanosis or clubbing, AROM x 4 Skin: no rashes, warm and dry normal turgor Neurologic: PERRL, EOMI, accommodation nl, no face palsy, no dysarthria CN's II-XI intact bilaterally and moves all extremities Psychiatric: A+Ox3, euthymic affect : deferred Principal Diagnosis Shortness of breath, and hypoxia, due to malignant pleural effusion Discharge Exam Constitutional: WD/WN, in NAD, sitting up in bed, pleasant, conversing easily, on RA Head: Normocephalic, Atraumatic Eyes: PERRL, EOMI, conjunctivae normal, anicteric sclerae ENMT: external ear and nose normal, oropharynx normal Neck: normal visual inspection Respiratory: normal respiratory effort, somewhat diminished breath sounds at bases, otherwise CTAB, no wheezing. R pleurx in place, surrounding skin with excoriation from dressing, no evidence of infection Cardiovascular: RRR, no murmur, no edema Chest: normal inspection of chest Abdomen: normal bowel sounds, soft, nontender Musculoskeletal: AROM x 4 Skin:warm and dry normal turgor Neurologic: PERRL, EOMI, no face palsy, no dysarthria, moves all extremities Psychiatric: A+Ox3, euthymic affect Discharge Data Allergies Allergy/AdvReac Type Severity Reaction Status Date / Time No Known Allergies Allergy Verified 02/16/22 12:43 Consultations 02/16/22 12:34 Consult Pulmonology Routine 02/16/22 12:42 ED Decision to Admit Stat Ordered Studies 02/16/22 10:31 CT angio chest PE protocol Stat Impression: 1. No CTA evidence for pulmonary embolus. 2. CT demonstrates large right pleural effusion with loculated right upper lobe and left lower lobe fluid collections along with free pleural fluid. Pleurx catheter is present within the loculated left lower lobe fluid collection. 3. There is associated collapse of majority of the right lung with only mild residual aerated lung present. 4. Not appreciated radiographically is a moderately large left pleural effusion as well with compressive atelectasis involving the left lower lobe. 5. 2 spiculated pulmonary nodules are present in the left representing metastatic disease. 6. Right paratracheal and precarinal adenopathy along with asymmetric right axillary adenopathy. Hospital Course (1) SOB (shortness of breath): (2) Pleural effusion: (3) Primary cancer of ovary with widespread metastatic disease: (4) DVT of upper extremity (deep vein thrombosis): (5) Hypoxia: Pt is a 51 yo female who has significant past medical history of malignant ovarian cancer with lung and liver mets initially diagnosed in 2015 s/p debulking surgery and 6 cycles of adjuvant chemotherapy, BRCA1 positive, recurrent disease noted in November of 2018 more in the liver and left periaortic lymph node s/p resection, October 2019 recurrent disease involving the liver and retroperitoneal lesion malignant pleural effusion. She has right-sided Pleurx catheter in place. She follows with [facility] interventional and pulmonology where she had pleurex placed 9 months ago. She also has history of upper extremity DVT currently anticoagulated on Eliquis. Currently she is receiving treatment with doxorubicin. Her last chemotherapy was on 01/31/2022. Hypoxia SOB Malignant Pleural Effusion Metastatic ovarian Ca to liver, lung and pleura Follows with Dr. Chad Hilario and Dr. Molly Thompson of [facility] Also follows with [facility] pulm and interventional radiology admitted to PCU Pulmonary medicine consulted to eval for loculated effusions b/l ? if further intervention required Pt was able to remove 600ml of pleural fluid in ED, also removed additional 250 mL today (02/17) Pleural fluid and indwelling catheter do not appear infected, no antibiotics needed Per pulm - Would recommend the patient transition to Vacutainer's as opposed to draining to a bag with her rocket catheter given the loculations. We can always instill tPA dornase in the future to break up these loculations. She would like to hold off on a thoracentesis of the left hemithorax at this time given that her symptoms have significantly improved. I will be happy to assist her on an outpatient basis in the future if required. I think she is safe to be discharged home. Currently she is saturating 97% on room air She is feeling well, and is eager to be discharged home. DVT Upper ext continue eliquis Total Time Total Time Spent Total Time Spent (In Minutes): 35 Discharge Plan Discharge Items Patient Disposition: Home - Self-Care Reason For Visit: SOB, HYPOXIA, LARGE MALIGNANT PLEURAL EFFUSION Discharge Diagnosis: Shortness of breath, and hypoxia, due to malignant pleural effusion Activity: Per Instructions section Non-emergency contact: Primary Care Provider and Sales Review Clerk Call non-emergency contact if: you have any medication questions and your symptoms worsen Follow-up/Referrals: Rossy Hilario MD [Primary Care Provider] - Diet: Regular Addtl Attending Provider Instructions: There were no medication changes made during your hospital stay. You were seen here by loader unloader, Dr. Schwartz. Please contact his office for follow-up, as needed. Follow-up with your regular healthcare providers, Dr. Hilario and Dr. Thompson as previously scheduled. Pending Studies at Discharge: No Stand-Alone Forms: My [facility] [employer], Smoking Cessation Medications and DC Order Prescriptions: Continued venlafaxine [Effexor XR] 37.5 mg Capsule,Extended Release 24hr 37.5 mg PO BID RF: 0 acyclovir 400 mg Tablet 400 mg PO QAM RF: 0 esomeprazole magnesium [Nexium] 40 mg Capsule,Delayed Release(Dr/Ec) 40 mg PO DAILY RF: 0 acetaminophen 500 mg Capsule 1,000 mg PO BID RF: 0 magnesium 200 mg Tablet 400 mg PO DAILY RF: 0 Vitamin B-12 25 mcg Tablet 0 mcg PO DAILY RF: 0 cholecalciferol (vitamin D3) [Vitamin D3] 25 mcg (1,000 unit) Tablet 0 mcg PO DAILY RF: 0 Eliquis 2.5 mg tablet 2.5 mg PO BID RF: 0 lorazepam 1 mg tablet 1 mg PO HS RF: 0 Discharge Orders: Discharge Order (Routine); Ordered 02/17/22 Ordered By: Marvin Perez Admission Data Admit Date/Time: 02/16/22 12:34 Attending Provider: Marvin Perez Admit Provider: Lopez Escamilla Primary Care Provider: Rossy Hilario Other Providers: Earnest Schwartz ; Lopez Escamilla
== END 2022-02-17 16:25 | disposition home or self-care (01) | DRG 181 ==
LOC: ED 09:50 → 2S 12:34 → SUATTDRO 12:34 → 2S 16:06